=== PATIENT | female | born 1940 | race Caucasian/White ===

== ENCOUNTER 2016-10-13 15:05 | Emergency (ER) | payer MEDICARE ==
[2016-10-13] MEDS ORDERED: Protonix 40MG Tablet PO ONE (15:31)
[2016-10-13] MEDS ORDERED: Carafate 1 GM PO ONE ×4 (15:31→17:13)
[2016-10-13] MEDS ORDERED: Protonix 40MG Tablet ONE (15:37)
[2016-10-13 16:17] LABS: BASOPHIL % 0.2 % (0.0-0.4); Eosinophil % 0.7 % (0.00-5.0); Granulocytes % 69.8 % (36.0-66.0); Lymphocytes % 18.9 % (24.0-44.0); Mean Cell Volume 95.6 fl (78-100); Mean Corpuscular Hemoglobin 31.2 pg (26-32); Mean Platelet Volume 10.2 fl (6-9.5); Monocytes % 10.4 % (0.0-12.0); Platelet Count 181 K/mm3 (150-450); Red Blood Count 4.09 M/mm3 (4.1-5.4); Red Cell Distribution Width 13.5 % (11.5-14.0)
[2016-10-13 16:46] LABS: ALBUMIN 3.3 g/dL (3.4-5.0); ALKALINE PHOSPHATASE 69 U/L (46-116); ANION GAP 11.9 MEQ/L (5-15); BILIRUBIN,TOTAL 0.5 mg/dL (0.2-1.0); BLOOD UREA NITROGEN 15 mg/dL (9-20); CHLORIDE 107 mEq/L (98-107); Carbon Dioxide 26.6 mEq/L (21-32); Glucose 97 MG/DL (70-110); LIPASE 363 U/L (73-393); SGOT/AST 19 U/L (15-37); SGPT/ALT 18 U/L (12-78); SODIUM 142 mEq/L (136-145); Total Protein 6.6 gm/dL (6.4-8.2)
--- NOTE | 2016-10-13 17:00 | ERPHSYRPT ---
- History of Present Illness Time Seen by Provider: 10/13/16 15:09 Historian: patient, family Exam Limitations: no limitations Patient Subjective Stated Complaint: ABD PAIN SINCE 0100 Triage Nursing Assessment: SUDDEN ONSET OF MID ABD PAIN INTERMITTENT NONRADIATING ABD PAIN. PAIN GOES AND COMES. NORMAL BM TODAY. SLIGHT NAUSEA IN THE NIGHT BUT NONE PRESENT. WHILE AMBULATING INTO ROOM, PT HAD SUDDEN ONSET OF ABD PAIN WHICH LASTED APPROX 4-5 SECONDS Physician History: intermittant abdominal pain since 2 pm today; no nausea or vomiting; pain is sharp , epigastric ; goes straight thru to back; like an electrical shock; last a few seconds; 4/10 when occurs; no trauma; no prior hx; voiding and bms ok; no prior hx; no trauma Timing/Duration: today Activities at Onset: rest Quality: sharpness Abdominal Pain Onset Location: epigastric Pain Radiation: back Severity of Pain-Max: mild Severity of Pain-Current: none Modifying Factors: Improves With: nothing Associated Symptoms: denies symptoms Previous symptoms: no prior history Allergies/Adverse Reactions: levofloxacin [From Levaquin] Allergy (Verified 10/13/16 15:27) Home Medications: Alprazolam [Xanax 0.25 mg] 0.25 mg PO HSPRN PRN 03/29/16 [History] Hx Tetanus, Diphtheria Vaccination/Date Given: Yes Hx Influenza Vaccination/Date Given: Yes Hx Pneumococcal Vaccination/Date Given: Yes Immunizations Up to Date: Yes - Review of Systems Constitutional: No Symptoms Eyes: No Symptoms Ears, Nose, & Throat: No Symptoms Respiratory: No Cough, No Dyspnea, No Wheezing Cardiac: No Chest Pain, No Palpitations, No Syncope Abdominal/Gastrointestinal: Abdominal Pain, No Nausea, No Vomiting, No Diarrhea , No Constipation Genitourinary Symptoms: No Dysuria, No Frequency, No Hematuria, No Incontinence Skin: No Symptoms Neurological: No Symptoms Psychological: No Symptoms Endocrine: No Symptoms Hematologic/Lymphatic: No Symptoms Immunological/Allergic: No Symptoms - Past Medical History Pertinent Past Medical History: Yes Neurological History: No Pertinent History ENT History: No Pertinent History Cardiac History: High Cholesterol, Hypertension Respiratory History: Bronchitis Endocrine Medical History: No Pertinent History Musculoskeletal History: Other GI Medical History: No Pertinent History History: No Pertinent History Psycho-Social History: Anxiety Female Reproductive Disorders: No Pertinent History Other Medical History: stenosis of back - Past Surgical History Past Surgical History: Yes Neuro Surgical History: No Pertinent History Cardiac: No Pertinent History Respiratory: No Pertinent History Gastrointestinal: Cholecystectomy Genitourinary: No Pertinent History Musculoskeletal: No Pertinent History Female Surgical History: Hysterectomy Other Surgical History: Luis cataract surgery - Social History Smoking Status: Never smoker Exposure to second hand smoke: No Alcohol Use: None Drug Use: none Patient Lives Alone: No Significant Family History: no pertinent family hx - Female History Hx Now: No - Nursing Vital Signs Nursing Vital Signs: Initial Vital Signs Temperature 98.3 F Temperature Source Oral Pulse Rate 94 Respiratory Rate 18 Blood Pressure [Right Arm] 169/83 Pain Intensity 9 - Physical Exam General Appearance: mild distress, alert, obese Eye Exam: PERRL/EOMI, eyes nml inspection, No photophobia Ears, Nose, Throat Exam: normal ENT inspection, TMs normal, pharynx normal, moist mucous membranes Neck Exam: normal inspection, non-tender, supple, full range of motion, No meningismus, No JVD Respiratory Exam: normal breath sounds, lungs clear, airway intact, No chest tenderness, No respiratory distress Cardiovascular Exam: regular rate/rhythm, normal heart sounds, normal peripheral pulses, capillary refill <2 sec, No murmur Gastrointestinal/Abdomen Exam: soft, normal bowel sounds, tenderness (mild epigastric; not tneder if protedcts), No distention, No mass, No guarding, No pulsatile mass, No rebound, No organomegaly Pelvic Exam: deferred Rectal Exam: deferred Back Exam: normal inspection, normal range of motion, No CVA tenderness, No vertebral tenderness Extremity Exam: normal inspection, normal range of motion, No pelvis stable, No nya's sign Neurologic Exam: alert, oriented x 3, cooperative, rn psych II-XII nml as tested, normal mood/affect, nml cerebellar function, nml station & gait Skin Exam: normal color, warm, dry, No rash SpO2 Interpretation: normal SpO2: 96 Oxygen Delivery: Room Air Ordered Tests: Active Orders 24 hr Category Date Time Status EKG-ER Only STAT Care 10/13/16 15:31 Active Re-Check Vital Signs STAT Care 10/13/16 15:31 Completed AMYLASE Stat Lab 10/13/16 15:57 Completed CBC W DIFF Stat Lab 10/13/16 15:57 Completed CMP Stat Lab 10/13/16 15:57 Completed LIPASE Stat Lab 10/13/16 15:57 Completed Medication Summary Discontinued Medications Generic Name Dose Route Start Last Admin Trade Name Fatoumata PRN Reason Stop Dose Admin Pantoprazole Sodium 40 mg 10/13/16 15:31 10/13/16 15:37 Protonix 40mg Tablet PO 10/13/16 15:32 40 mg STAT ONE Administration Pantoprazole Sodium Confirm 10/13/16 15:37 Protonix 40mg Tablet Administered 10/13/16 15:38 Dose 40 mg .ROUTE .STK-MED ONE Sucralfate 1 g 10/13/16 15:31 10/13/16 15:37 Carafate 1 Gm PO 10/13/16 15:32 1 g STAT ONE Administration Sucralfate Confirm 10/13/16 15:37 Carafate 1 Gm Administered 10/13/16 15:38 Dose 1 g PO .STK-MED ONE Lab/Rad Data: Laboratory Result Diagrams 10/13/16 15:57 10/13/16 15:57 Laboratory Results 10/13/16 10/13/16 Range/Units 15:57 15:57 WBC 10.0 (4.0-10.5) K/mm3 RBC 4.09 L (4.1-5.4) M/mm3 Hgb 12.8 (12.0-16.0) gm/dl Hct 39.1 (35-47) % MCV 95.6 (78-100) fl MCH 31.2 (26-32) pg MCHC 32.7 (32-36) g/dl RDW 13.5 (11.5-14.0) % Plt Count 181 (150-450) K/mm3 MPV 10.2 H (6-9.5) fl Gran % 69.8 H (36.0-66.0) % Lymphocytes % 18.9 L (24.0-44.0) % Monocytes % 10.4 (0.0-12.0) % Eosinophils % 0.7 (0.00-5.0) % Basophils % 0.2 (0.0-0.4) % Basophils # 0.02 (0-0.4) Sodium 142 (136-145) mEq/L Potassium 4.0 (3.5-5.1) mEq/L Chloride 107 (98-107) mEq/L Carbon Dioxide 26.6 (21-32) mEq/L Anion Gap 11.9 (5-15) MEQ/L BUN 15 (9-20) mg/dL Creatinine 0.87 (0.55-1.30) mg/dl Estimated GFR > 60 ML/MIN Glucose 97 (70-110) MG/DL Calcium 8.9 (8.5-10.1) mg/dL Total Bilirubin 0.5 (0.2-1.0) mg/dL AST 19 (15-37) U/L ALT 18 (12-78) U/L Alkaline Phosphatase 69 (46-116) U/L Serum Total Protein 6.6 (6.4-8.2) gm/dL Albumin 3.3 L (3.4-5.0) g/dL Amylase 97 (25-115) U/L Lipase 363 (73-393) U/L reviewed - Progress Progress: improved (after meds), re-examined (after meds) Progress Note: 10/13/16 17:00 family at bedside; gave gi meds; rechecked and feeling better; abdomen soft non- tender; ;labs ok; treatment plan and instructions given Counseled pt/family regarding: lab results, diagnosis, need for follow-up - Departure Time of Disposition: 17:02 Departure Disposition: Home Clinical Impression: Abdominal pain Condition: Stable Critical Care Time: No Instructions: Abdominal Pain-Adult Additional Instructions: clear liquids 24 hours; bland diet 24 hours, Follow-up with family doctor as directed. Call for appointment. Return if any problems. If you smoke please stop. Call or follow up with your family doctor for assistance if you need it to stop. Please wear your seatbelt when driving. Have a nice day. Thank you for allowing us to participate in your care today. :o) Dr Dada Almaraz Prescriptions: Famotidine 20 mg [Pepcid 20 MG] 20 mg PO BID #30 tablet Sucralfate 1000 mg/10 ml [Carafate SUSPENSION 1000 MG/10 ML] 1 gm PO ACHS # 8 oz
[2016-10-13 17:24] VITALS: BP 122/70; PULSE 78; O2SAT 100
== END 2016-10-13 17:24 | disposition home or self-care (01) ==
LOC: ED 15:05
DX: R10.9 Unspecified abdominal pain (principal); R11.0 Nausea; R10.13 Epigastric pain
CPT/HCPCS: 36415; 80053; 82150; 83690; 85025; 93005; 99284; A9270-GY

== ENCOUNTER 2017-01-11 23:05 | Emergency (ER) | payer MEDICARE ==
--- NOTE | 2017-01-11 23:44 | ERPHSYRPT ---
- History of Present Illness Time Seen by Provider: 01/11/17 23:39 Historian: patient Patient Subjective Stated Complaint: Pt with chest pain earlier tonight after emotional upset with family. Pt took 5 81 mg ASA and maalox. Pt denies pain upon arrival to ER. Sts nausea PHYSICIAN SCRIBE. Describes pain as epigastric radiating up the center of the chest with nausea. Pt denies shortness of breath. Sts crying during episode. Triage Nursing Assessment: Pt alert, oriented, answers all questions appropriately. Skin p/w/d, resps non-labored. EKG at triage - sinus rhythm. Lung sounds CTA bilat. ABD soft, nontender, + bowel sounds x 4 quadrants. Physician History: Pt. states drank 3 beers tonight and noticed epigastric discomfort, dull, localized along with nausea, but no CP, vomiting, dizziness, weakness or SOB. Incident began around 10:30P and was talking to her daughter about her problems. States increase stressed from family problems. pt. took Maalox with some relief of her symptosm. Pt. states she has "leaky valve" and have seen rebar fabricator for this problems. States she also took Aspirin X 5 at home as well. Upon EMS arrival, pt.'s BP was 190/100. Timing/Duration: hour(s) (1) Activities at Onset: emotional stress Quality: aching Abdominal Pain Onset Location: epigastric Pain Radiation: no radiation Severity of Pain-Max: mild Severity of Pain-Current: mild Associated Symptoms: diarrhea, No chest pain, No diaphoresis, No fatigue, No headache, No vomiting Previous symptoms: same symptoms as today Allergies/Adverse Reactions: levofloxacin [From Levaquin] Allergy (Verified 01/11/17 23:17) Home Medications: Alprazolam [Xanax 0.25 mg] 0.25 mg PO HSPRN PRN 03/29/16 [History] Ropinirole HCl [Requip] 0 mg PO 01/11/17 [History] Hx Tetanus, Diphtheria Vaccination/Date Given: Yes Hx Influenza Vaccination/Date Given: Yes Hx Pneumococcal Vaccination/Date Given: Yes Immunizations Up to Date: Yes - Review of Systems Constitutional: No Fever, No Chills Eyes: No Symptoms Ears, Nose, & Throat: No Symptoms Respiratory: No Cough, No Dyspnea Cardiac: No Chest Pain, No Edema, No Syncope Abdominal/Gastrointestinal: Abdominal Pain, Nausea, Diarrhea, No Vomiting Genitourinary Symptoms: No Dysuria Musculoskeletal: No Back Pain, No Neck Pain Skin: No Rash Neurological: No Dizziness, No Focal Weakness, No Sensory Changes Psychological: No Symptoms Endocrine: No Symptoms All Other Systems: Reviewed and Negative - Past Medical History Pertinent Past Medical History: Yes Neurological History: No Pertinent History ENT History: No Pertinent History Cardiac History: High Cholesterol, Hypertension Respiratory History: Bronchitis Endocrine Medical History: No Pertinent History Musculoskeletal History: Other GI Medical History: No Pertinent History History: No Pertinent History Psycho-Social History: Anxiety Female Reproductive Disorders: No Pertinent History Other Medical History: stenosis of back - Past Surgical History Past Surgical History: Yes Neuro Surgical History: No Pertinent History Cardiac: No Pertinent History Respiratory: No Pertinent History Gastrointestinal: Cholecystectomy Genitourinary: No Pertinent History Musculoskeletal: No Pertinent History Female Surgical History: Hysterectomy Other Surgical History: Luis cataract surgery - Social History Smoking Status: Never smoker Exposure to second hand smoke: No Alcohol Use: None Drug Use: none Patient Lives Alone: No Significant Family History: no pertinent family hx - Female History Hx Now: No - Nursing Vital Signs Nursing Vital Signs: Initial Vital Signs Temperature 98.5 F 01/11/17 23:10 Pulse Rate 71 01/11/17 23:10 Respiratory Rate 20 01/11/17 23:10 Blood Pressure 194/86 01/11/17 23:10 O2 Sat by Pulse Oximetry 99 01/11/17 23:10 Pain Scale Pain Intensity 8 - Physical Exam General Appearance: no apparent distress, alert Eye Exam: PERRL/EOMI, eyes nml inspection Ears, Nose, Throat Exam: normal ENT inspection, pharynx normal, moist mucous membranes Neck Exam: normal inspection, non-tender, supple, full range of motion Respiratory Exam: normal breath sounds, lungs clear, No respiratory distress Cardiovascular Exam: regular rate/rhythm, normal heart sounds Gastrointestinal/Abdomen Exam: soft, tenderness (mild to epigastric area), No distention, No mass, No pulsatile mass, No rebound Back Exam: normal inspection, normal range of motion, No CVA tenderness, No vertebral tenderness Extremity Exam: normal inspection, normal range of motion, pelvis stable Neurologic Exam: alert, oriented x 3, cooperative, normal mood/affect, nml cerebellar function, sensation nml, No motor deficits Skin Exam: normal color, warm, dry SpO2: 99 Oxygen Delivery: Room Air - Course Nursing assessment & vital signs reviewed: Yes EKG Interpreted by Me: RATE (60), Sinus Rhythm, NORMAL AXIS, NORMAL QRS, NORMAL ST-T - Radiology Exams Abdomen X-ray Interpretation: Interpreted by me, No Infiltrates, Other (No obstruction or free air) Ordered Tests: Active Orders 24 hr Category Date Time Status EKG-ER Only STAT Care 01/11/17 23:48 Active IV Insertion STAT Care 01/11/17 23:48 Active OBSTR/ACUTE ABDOMEN SERIES Stat Exams 01/11/17 23:49 Taken AMYLASE Stat Lab 01/11/17 00:25 Completed CBC W DIFF Stat Lab 01/11/17 00:25 Completed CMP Stat Lab 01/11/17 00:25 Completed LIPASE Stat Lab 01/11/17 00:25 Completed TROPONIN Q3H Lab 01/11/17 00:25 Completed TROPONIN Q3H Lab 01/12/17 02:48 Ordered TROPONIN Q3H Lab 01/12/17 05:48 Ordered TROPONIN Q3H Lab 01/12/17 08:48 Ordered TROPONIN Q3H Lab 01/12/17 11:48 Ordered Medication Summary Discontinued Medications Generic Name Dose Route Start Last Admin Trade Name Freq PRN Reason Stop Dose Admin Al Hydrox/Mg Hydrox/Simethicone Confirm 01/12/17 00:39 Maalox Es 30 Ml Unit Dose Administered 01/12/17 00:40 Dose 30 ml .ROUTE .STK-MED ONE Belladonna Alkaloids/Phenobarbital 60 ml 01/12/17 00:35 01/12/17 00:43 Gi Cocktail 60ml (Belladonn/Phenobarb/Lidoc* PO 01/12/17 00:36 60 ml STAT ONE Administration Belladonna Alkaloids/Phenobarbital Confirm 01/12/17 00:39 Donnatol Liquid Administered 01/12/17 00:40 Dose 64.8 mg .ROUTE .STK-MED ONE Lidocaine HCl Confirm 01/12/17 00:38 Xylocaine Hcl Viscous * Administered 01/12/17 00:39 Dose 20 ml .ROUTE .STK-MED ONE Morphine Sulfate 2 mg 01/11/17 23:48 01/12/17 00:04 Morphine Sulfate 2 Mg Inj IV 01/11/17 23:49 2 mg STAT ONE Administration Morphine Sulfate Confirm 01/11/17 23:53 Morphine Sulfate 2 Mg Inj Administered 01/11/17 23:54 Dose 2 mg .ROUTE .STK-MED ONE Ondansetron HCl 4 mg 01/11/17 23:48 01/12/17 00:04 Zofran 4 Mg/2 Ml Vial IV 01/11/17 23:49 4 mg STAT ONE Administration Ondansetron HCl Confirm 01/11/17 23:53 Zofran 4 Mg/2 Ml Vial Administered 01/11/17 23:54 Dose 4 mg .ROUTE .STK-MED ONE Pantoprazole Sodium 40 mg 01/11/17 23:48 01/12/17 00:04 Protonix 40mg Tablet PO 01/11/17 23:49 40 mg STAT ONE Administration Pantoprazole Sodium Confirm 01/11/17 23:53 Protonix 40mg Tablet Administered 01/11/17 23:54 Dose 40 mg .ROUTE .STK-MED ONE Lab/Rad Data: Laboratory Result Diagrams 01/11/17 00:25 01/11/17 00:25 Laboratory Results 01/11/17 01/11/17 01/11/17 Range/Units 00:25 00:25 00:25 WBC 7.7 (4.0-10.5) K/mm3 RBC 4.45 (4.1-5.4) M/mm3 Hgb 13.4 (12.0-16.0) gm/dl Hct 41.1 (35-47) % MCV 92.4 (78-100) fl MCH 30.1 (26-32) pg MCHC 32.6 (32-36) g/dl RDW 13.7 (11.5-14.0) % Plt Count 223 (150-450) K/mm3 MPV 10.0 H (6-9.5) fl Gran % 55.6 (36.0-66.0) % Lymphocytes % 33.3 (24.0-44.0) % Monocytes % 9.4 (0.0-12.0) % Eosinophils % 1.2 (0.00-5.0) % Basophils % 0.5 (0.0-0.4) % Basophils # 0.04 (0-0.4) Sodium 139 (136-145) mEq/L Potassium 3.7 (3.5-5.1) mEq/L Chloride 103 (98-107) mEq/L Carbon Dioxide 26.5 (21-32) mEq/L Anion Gap 13.3 (5-15) MEQ/L BUN 17 (9-20) mg/dL Creatinine 0.88 (0.55-1.30) mg/dl Estimated GFR > 60 ML/MIN Glucose 104 (70-110) MG/DL Calcium 8.6 (8.5-10.1) mg/dL Total Bilirubin 0.40 (0.2-1.0) mg/dL AST 45 H (15-37) U/L ALT 29 (12-78) U/L Alkaline Phosphatase 81 (46-116) U/L Troponin I < 0.017 (0.000-0.056) ng/ml Serum Total Protein 7.4 (6.4-8.2) gm/dL Albumin 3.8 (3.4-5.0) g/dL Amylase 77 (25-115) U/L Lipase 276 (73-393) U/L - Progress Progress: improved Progress Note: 01/12/17 01:27 Pt. given Protonix/Zofran/GI Cocktail with good relief of her symptoms. Pt. sleeping very comfortably, NAD Counseled pt/family regarding: lab results, diagnosis, rad results - Departure Time of Disposition: 01:28 Departure Disposition: Home Clinical Impression: Abdominal pain Qualifiers: Abdominal location: epigastric Qualified Code(s): R10.13 - Epigastric pain Condition: Stable Critical Care Time: No Referrals: KERRIE LOVING [Primary Care Provider] - Instructions: Abdominal Pain-Adult Additional Instructions: RX: Pepcid/Zofran Return for worse abdominal pain, vomiting, chest pain, dizziness, short of breath, weakness, or any problems Prescriptions: Ondansetron [Zofran Odt] 4 mg PO Q6H PRN PRN #10 tab.rapdis PRN Reason: Nausea/Vomiting Famotidine [Pepcid] 20 mg PO DAILY #30 tablet
[2017-01-11] MEDS ORDERED: Protonix 40MG Tablet PO ONE (23:48)
[2017-01-11] MEDS ORDERED: Zofran 4 MG/2 ML VIAL IV ONE (23:48)
[2017-01-11] MEDS ORDERED: MORPHINE SULFATE 2 MG INJ IV ONE (23:48)
[2017-01-11] MEDS ORDERED: Zofran 4 MG/2 ML VIAL ONE (23:53)
[2017-01-11] MEDS ORDERED: MORPHINE SULFATE 2 MG INJ ONE (23:53)
[2017-01-11] MEDS ORDERED: Protonix 40MG Tablet ONE (23:53)
[2017-01-12] MEDS ORDERED: GI COCKTAIL 60ML (Belladonn/Phenobarb/Lidoc PO ONE (00:35)
[2017-01-12] MEDS ORDERED: XYLOCAINE HCl Viscous ONE (00:38)
[2017-01-12] MEDS ORDERED: MAALOX ES 30 ML UNIT DOSE ONE (00:39)
[2017-01-12] MEDS ORDERED: Donnatol Liquid ONE (00:39)
[2017-01-12 00:42] LABS: BASOPHIL % 0.5 % (0.0-0.4); Eosinophil % 1.2 % (0.00-5.0); Granulocytes % 55.6 % (36.0-66.0); Lymphocytes % 33.3 % (24.0-44.0); Mean Cell Volume 92.4 fl (78-100); Mean Corpuscular Hemoglobin 30.1 pg (26-32); Monocytes % 9.4 % (0.0-12.0); Platelet Count 223 K/mm3 (150-450); Red Blood Count 4.45 M/mm3 (4.1-5.4); Red Cell Distribution Width 13.7 % (11.5-14.0); White Blood Count 7.7 K/mm3 (4.0-10.5)
[2017-01-12 01:02] LABS: ALBUMIN 3.8 g/dL (3.4-5.0); ALKALINE PHOSPHATASE 81 U/L (46-116); ANION GAP 13.3 MEQ/L (5-15); BLOOD UREA NITROGEN 17 mg/dL (9-20); CHLORIDE 103 mEq/L (98-107); Carbon Dioxide 26.5 mEq/L (21-32); Glucose 104 MG/DL (70-110); LIPASE 276 U/L (73-393); Potassium 3.7 mEq/L (3.5-5.1); SGOT/AST 45 U/L (15-37); SGPT/ALT 29 U/L (12-78); SODIUM 139 mEq/L (136-145); Total Protein 7.4 gm/dL (6.4-8.2)
[2017-01-12 02:14] VITALS: BP 176/82; PULSE 86; O2SAT 98
--- NOTE | 2017-01-12 09:24 | XRAY ---
Indication: Chest and abdomen pain. Comparison: Chest exam May 07, 2016. 2 views of the abdomen nonacute and nonobstructed with scattered mid abdominal surgical clips. Solid organs unremarkable. Osseous structures intact with minimal degenerative changes. Single PA chest again demonstrates normal heart and lungs. Bony thorax intact. Impression: Negative abdomen. Stable nonacute 1 view chest.
== END 2017-01-12 02:15 | disposition home or self-care (01) ==
LOC: ED 23:05
DX: R10.13 Epigastric pain (principal); R11.0 Nausea; Z73.3 Stress, not elsewhere classified; Z63.8 Other specified problems related to primary support group; I10 Essential (primary) hypertension; E78.00 Pure hypercholesterolemia, unspecified
CPT/HCPCS: 36000; 36415; 74022; 80053; 82150; 83690; 84484; 85025; 93005; 96374; 96375; 99284; 99285; J2270; J2405; A9270-GY

== ENCOUNTER 2018-08-01 19:35 | Emergency (ER) | payer MEDICARE ==
[2018-08-01] MEDS ORDERED: Sodium Chloride 0.9% 1000 ML 1,000 ML IV STA (20:25)
[2018-08-01] MEDS ORDERED: MOTRIN 600 MG PO STA (20:25)
[2018-08-01] MEDS ORDERED: Zofran 4 MG/2 ML VIAL IV STA (20:25)
--- NOTE | 2018-08-01 20:25 | ERPHSYRPT ---
- History of Present Illness Time Seen by Provider: 08/01/18 20:15 Source: patient, family Exam Limitations: no limitations Patient Subjective Stated Complaint: pt c/o fever x 3 days, cough that has worsened "this week, but i have asthmatic bronchitis so i'm always coughing". c/ o intermittent diarrhea,. fatigue and body aches. denies changes in urination. Triage Nursing Assessment: pink/hot/dry, resp easy, a&ox4, wheeled to room but able to transfer to bed per self without difficulty. Physician History: 78 y/o white female presents with fever, cough, muscle aches and diarrhea for 2 to 3 days. has a h/o asthmatic bronchitis. sx not improved. denies cp, denies abd pain. pt denies earaches, denies sore throat and denies neck pain. 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 Associated Symptoms: cough, muscle aches, No diaphoresis, No shortness of breath , No sore throat, No stiff neck International travel in last 2 weeks: No Allergies/Adverse Reactions: levofloxacin [From [employer]] Allergy (Verified 01/11/17 23:17) Home Medications: ALPRAZolam [Xanax 0.25 mg] 0.25 mg PO HSPRN PRN 03/29/16 [History] Ropinirole HCl [Requip] 0 mg PO 01/11/17 [History] Losartan/Hydrochlorothiazide [Losartan-Hctz 50-12.5 mg Tab] 1 tab PO DAILY 08/01 [History] Hx Tetanus, Diphtheria Vaccination/Date Given: Yes Hx Influenza Vaccination/Date Given: Yes Hx Pneumococcal Vaccination/Date Given: Yes Immunizations Up to Date: Yes - Review of Systems Constitutional: Fever, Weakness Eyes: No Symptoms Ears, Nose, & Throat: No Symptoms Respiratory: Cough, No Dyspnea, No Stridor, No Wheezing Cardiac: No Symptoms Abdominal/Gastrointestinal: No Symptoms, No Abdominal Pain, No Nausea, No Vomiting, No Diarrhea Genitourinary Symptoms: No Symptoms, No Dysuria, No Frequency, No Hematuria Musculoskeletal: No Symptoms, Back Pain Skin: No Symptoms Neurological: No Symptoms Psychological: No Symptoms Endocrine: No Symptoms Hematologic/Lymphatic: No Symptoms Immunological/Allergic: No Symptoms All Other Systems: Reviewed and Negative - Past Medical History Pertinent Past Medical History: Yes Neurological History: No Pertinent History ENT History: No Pertinent History Cardiac History: High Cholesterol, Hypertension Respiratory History: Bronchitis Endocrine Medical History: No Pertinent History Musculoskeletal History: Other GI Medical History: No Pertinent History History: No Pertinent History Psycho-Social History: Anxiety Female Reproductive Disorders: No Pertinent History Other Medical History: stenosis of back - Past Surgical History Past Surgical History: Yes Neuro Surgical History: No Pertinent History Cardiac: No Pertinent History Respiratory: No Pertinent History Gastrointestinal: Cholecystectomy Genitourinary: No Pertinent History Musculoskeletal: No Pertinent History Female Surgical History: Hysterectomy Other Surgical History: Luis cataract surgery - Social History Smoking Status: Never smoker Exposure to second hand smoke: No Alcohol Use: None Drug Use: none Patient Lives Alone: No Significant Family History: no pertinent family hx - Female History Hx Now: No - Nursing Vital Signs Nursing Vital Signs: Initial Vital Signs Temperature 103.2 F 08/01/18 20:14 Pulse Rate 107 H 08/01/18 20:14 Respiratory Rate 18 08/01/18 20:14 Blood Pressure 149/90 08/01/18 20:14 O2 Sat by Pulse Oximetry 94 L 08/01/18 20:14 - Physical Exam General Appearance: mild distress, alert, anxiety Eye Exam: PERRL/EOMI ENT Exam: normal ENT inspection, TMs normal, pharynx normal Neck Exam: normal inspection, non-tender, supple, full range of motion Respiratory Exam: normal breath sounds, chest non-tender, lungs clear, no respiratory distress, no accessory muscle use Cardiovascular/Chest Exam: tachycardia Gastrointestinal/Abdominal Exam: soft, non tender, no distention, no mass, no guarding, no organomegaly, normal bowel sounds Pelvic Exam: not done Rectal Exam: not done Extremity Exam: non-tender, normal range of motion, normal inspection Neurologic Exam: alert, oriented x 3, 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, 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 Skin Exam: normal color, warm, dry Lymphatic: No adenopathy SpO2 Interpretation: borderline oxygenation SpO2: 94 O2 Delivery: Room Air Ordered Tests: Active Orders 24 hr Category Date Time Status IV Insertion STAT Care 08/01/18 20:25 Active CHEST 1 VIEW (PORTABLE) Stat Exams 08/01/18 20:25 Taken BLOOD CULTURE Stat Lab 08/01/18 21:00 Received CBC W DIFF Stat Lab 08/01/18 20:30 Completed CMP Stat Lab 08/01/18 20:30 Completed Lactic Acid Stat Lab 08/01/18 21:00 Completed [place] Screen Stat Lab 08/01/18 20:30 Completed UA W/RFX UR CULTURE Stat Lab 08/01/18 21:15 Completed Medication Summary Discontinued Medications Generic Name Dose Route Start Last Admin Trade Name Fatoumata PRN Reason Stop Dose Admin Hydrocodone Bitart/Acetaminophen 10 ml 08/01/18 20:26 08/01/18 20:57 Hydrocodone-Acetamin 2.5-108/5 Ml Solution PO 08/01/18 20:27 10 ml STAT STA Administration Hydrocodone Bitart/Acetaminophen Confirm 08/01/18 20:40 Hydrocodone-Acetamin 2.5-108/5 Ml Solution Administered 08/01/18 20:41 Dose 10 ml .ROUTE .STK-MED ONE Sodium Chloride 1,000 mls @ 999 mls/hr 08/01/18 20:25 08/01/18 20:57 Sodium Chloride 0.9% 1000 Ml IV 08/01/18 21:25 999 mls/hr .Q1H1M STA Administration Sodium Chloride Confirm 08/01/18 20:40 Sodium Chloride 0.9% 1000 Ml Administered 08/01/18 20:41 Dose 1,000 mls @ ud .ROUTE .STK-MED ONE Ceftriaxone Sodium/Dextrose 1 g in 50 mls @ 100 mls/hr 08/01/18 21:51 21:59 Rocephin 1 Gm-D5w 50 Ml Bag IV 08/01/18 22:20 100 mls/hr STAT STA Administration Ceftriaxone Sodium/Dextrose Confirm 08/01/18 21:55 Rocephin 1 Gm-D5w 50 Ml Bag Administered 08/01/18 21:56 Dose 1 g in 50 mls @ ud IV .STK-MED ONE Ibuprofen 600 mg 08/01/18 20:25 08/01/18 20:57 Motrin 600 Mg PO 08/01/18 20:26 600 mg STAT STA Administration Ibuprofen Confirm 08/01/18 20:40 Motrin 600 Mg Administered 08/01/18 20:41 Dose 600 mg .ROUTE .STK-MED ONE Ondansetron HCl 4 mg 08/01/18 20:25 08/01/18 20:57 Zofran 4 Mg/2 Ml Vial IV 08/01/18 20:26 4 mg STAT STA Administration Ondansetron HCl Confirm 08/01/18 20:40 Zofran 4 Mg/2 Ml Vial Administered 08/01/18 20:41 Dose 4 mg .ROUTE .STK-MED ONE Oseltamivir Phosphate 75 mg 08/01/18 22:02 08/01/18 22:09 Tamiflu 75mg Capsule PO 08/01/18 22:03 75 mg STAT ONE Administration Oseltamivir Phosphate Confirm 08/01/18 22:09 Tamiflu 75mg Capsule Administered 08/01/18 22:10 Dose 75 mg PO .STK-MED ONE Potassium Chloride 10 meq 08/01/18 21:53 08/01/18 21:59 Klor Con 10 Meq PO 08/01/18 21:54 10 meq STAT ONE Administration Potassium Chloride Confirm 08/01/18 21:55 Klor Con 10 Meq Administered 08/01/18 21:56 Dose 10 meq PO .STK-MED ONE Lab/Rad Data: Laboratory Result Diagrams 08/01/18 20:30 08/01/18 20:30 Laboratory Results 08/01/18 08/01/18 08/01/18 Range/Units 21:15 21:00 20:30 WBC (4.0-10.5) K/mm3 RBC (4.1-5.4) M/mm3 Hgb (12.0-16.0) gm/dl Hct (35-47) % MCV (78-100) fl MCH (26-32) pg MCHC (32-36) g/dl RDW (11.5-14.0) % Plt Count (150-450) K/mm3 MPV (6-9.5) fl Gran % (36.0-66.0) % Eos # (Auto) (0-0.5) Absolute Lymphs (auto) (1.0-4.6) Absolute Monos (auto) (0.0-1.3) Lymphocytes % (24.0-44.0) % Monocytes % (0.0-12.0) % Eosinophils % (0.00-5.0) % Basophils % (0.0-0.4) % Absolute Granulocytes (1.4-6.9) Basophils # (0-0.4) Sodium (137-145) mmol/L Potassium (3.5-5.1) mmol/L Chloride (98-107) mmol/L Carbon Dioxide (22-30) mmol/L Anion Gap (5-15) MEQ/L BUN (7-17) mg/dL Creatinine (0.52-1.04) mg/dL Estimated GFR ML/MIN Glucose (74-106) mg/dL Lactic Acid 1.0 (0.4-2.0) Calcium (8.4-10.2) mg/dL Total Bilirubin (0.2-1.3) mg/dL AST (14-36) U/L ALT (0-35) U/L Alkaline Phosphatase (38-126) U/L Serum Total Protein (6.3-8.2) g/dL Albumin (3.5-5.0) g/dL Urine Color YELLOW (YELLOW) Urine Appearance SLIGHTLY CLOUDY (CLEAR) Urine pH 5.0 (5-6) Ur Specific [place] 1.015 (1.005-1.025) Urine Protein NEGATIVE (Negative) Urine Ketones SMALL (NEGATIVE) Urine Blood MODERATE (0-5) Gustavo/ul Urine Nitrite NEGATIVE (NEGATIVE) Urine Bilirubin NEGATIVE (NEGATIVE) Urine Urobilinogen NEGATIVE (0-1) mg/dL Ur Leukocyte Esterase LARGE (NEGATIVE) Urine WBC (Auto) 6-10 (0-5) /HPF Urine RBC (Auto) 11-15 (0-2) /HPF U Hyaline Cast (Auto) 0-2 (0-2) /LPF U Epithel Cells (Auto) RARE (FEW) /HPF Urine Bacteria (Auto) RARE (NEGATIVE) /HPF Urine Mucus (Auto) SLIGHT (NEGATIVE) /HPF Urine Culture Reflexed NO (NO) Urine Glucose NEGATIVE (NEGATIVE) mg/dL Monoscreen (Negative) Influenza Type A Ag POSITIVE (NEGATIVE) Influenza Type B Ag NEGATIVE (NEGATIVE) RSV (PCR) NEGATIVE (Negative) Group A Strep Antibody NEGATIVE (NEGATIVE) 08/01/18 08/01/18 08/01/18 Range/Units 20:30 20:30 20:30 WBC 7.9 (4.0-10.5) K/mm3 RBC 3.91 L (4.1-5.4) M/mm3 Hgb 12.0 (12.0-16.0) gm/dl Hct 36.3 (35-47) % MCV 92.8 (78-100) fl MCH 30.6 (26-32) pg MCHC 33.1 (32-36) g/dl RDW 13.5 (11.5-14.0) % Plt Count 193 (150-450) K/mm3 MPV 10.5 H (6-9.5) fl Gran % 69.6 H (36.0-66.0) % Eos # (Auto) 0 (0-0.5) Absolute Lymphs (auto) 1.48 (1.0-4.6) Absolute Monos (auto) 0.89 (0.0-1.3) Lymphocytes % 18.8 L (24.0-44.0) % Monocytes % 11.3 (0.0-12.0) % Eosinophils % 0.0 (0.00-5.0) % Basophils % 0.3 (0.0-0.4) % Absolute Granulocytes 5.47 (1.4-6.9) Basophils # 0.02 (0-0.4) Sodium 134 L (137-145) mmol/L Potassium 3.0 L (3.5-5.1) mmol/L Chloride 96 L (98-107) mmol/L Carbon Dioxide 27 (22-30) mmol/L Anion Gap 14.1 (5-15) MEQ/L BUN 11 (7-17) mg/dL Creatinine 0.81 (0.52-1.04) mg/dL Estimated GFR > 60.0 ML/MIN Glucose 89 (74-106) mg/dL Lactic Acid (0.4-2.0) Calcium 8.5 (8.4-10.2) mg/dL Total Bilirubin 0.70 (0.2-1.3) mg/dL AST 37 H (14-36) U/L ALT 22 (0-35) U/L Alkaline Phosphatase 77 (38-126) U/L Serum Total Protein 6.8 (6.3-8.2) g/dL Albumin 3.6 (3.5-5.0) g/dL Urine Color (YELLOW) Urine Appearance (CLEAR) Urine pH (5-6) Ur Specific [place] (1.005-1.025) Urine Protein (Negative) Urine Ketones (NEGATIVE) Urine Blood (0-5) Gustavo/ul Urine Nitrite (NEGATIVE) Urine Bilirubin (NEGATIVE) Urine Urobilinogen (0-1) mg/dL Ur Leukocyte Esterase (NEGATIVE) Urine WBC (Auto) (0-5) /HPF Urine RBC (Auto) (0-2) /HPF U Hyaline Cast (Auto) (0-2) /LPF U Epithel Cells (Auto) (FEW) /HPF Urine Bacteria (Auto) (NEGATIVE) /HPF Urine Mucus (Auto) (NEGATIVE) /HPF Urine Culture Reflexed (NO) Urine Glucose (NEGATIVE) mg/dL Monoscreen NEGATIVE (Negative) Influenza Type A Ag (NEGATIVE) Influenza Type B Ag (NEGATIVE) RSV (PCR) (Negative) Group A Strep Antibody (NEGATIVE) - Progress Progress: improved, re-examined Progress Note: 08/01/18 22:22 cxr-no acute process Counseled pt/family regarding: lab results, diagnosis, need for follow-up, rad results - Departure Time of Disposition: 22:22 Departure Disposition: Home Clinical Impression: Influenza A H1N1 infection, UTI (urinary tract infection) Condition: Stable Critical Care Time: No Referrals: SMITH HAYES MD [Primary Care Provider] - Additional Instructions: drink plenty of fluids. follow up with primary doctor for further management. add ibuprofen for pain and fever Prescriptions: Cefdinir 300 mg PO BID 7 Days #14 capsule Hydrocodone Bit/Acetaminophen [Hydrocodone-Acetaminophen Soln] 10 ml PO Q6H PRN #120 ml PRN Reason: Cough
[2018-08-01] MEDS ORDERED: HYDROCODONE-ACETAMIN 2.5-108/5 ML SOLUTION PO STA (20:26)
[2018-08-01] MEDS ORDERED: MOTRIN 600 MG ONE (20:40)
[2018-08-01] MEDS ORDERED: Zofran 4 MG/2 ML VIAL ONE (20:40)
[2018-08-01] MEDS ORDERED: Sodium Chloride 0.9% 1000 ML 1,000 ML ONE (20:40)
[2018-08-01] MEDS ORDERED: HYDROCODONE-ACETAMIN 2.5-108/5 ML SOLUTION ONE (20:40)
[2018-08-01 21:24] LABS: BASOPHIL % 0.3 % (0.0-0.4); Basophil (Absolute #) 0.02 (0-0.4); Eosinophil (Absolute #) 0 (0-0.5); Granulocyte Absolute (ANC) 5.47 (1.4-6.9); Granulocytes % 69.6 % (36.0-66.0); Hematocrit 36.3 % (35-47); Lymphocyte (Absolute #) 1.48 (1.0-4.6); Lymphocytes % 18.8 % (24.0-44.0); Mean Cell Volume 92.8 fl (78-100); Mean Corpuscular Hgb Concent. 33.1 g/dl (32-36); Mean Platelet Volume 10.5 fl (6-9.5); Monocyte (Absolute #) 0.89 (0.0-1.3); Monocytes % 11.3 % (0.0-12.0); Platelet Count 193 K/mm3 (150-450); Red Blood Count 3.91 M/mm3 (4.1-5.4); Red Cell Distribution Width 13.5 % (11.5-14.0); White Blood Count 7.9 K/mm3 (4.0-10.5)
[2018-08-01 21:26] LABS: Mean Corpuscular Hemoglobin 30.6 pg (26-32)
[2018-08-01 21:32] LABS: Appearance SLIGHTLY CLOUDY (CLEAR); Bacteria RARE /HPF (NEGATIVE); Bilirubin NEGATIVE (NEGATIVE); Blood MODERATE Ery/ul (0-5); Epithelial Cells RARE /HPF (FEW); Glucose NEGATIVE (NEGATIVE); Hyaline Casts 0-2 /LPF (0-2); Ketones SMALL (NEGATIVE); Leukocyte Esterase LARGE (NEGATIVE); Mucus SLIGHT /HPF (NEGATIVE); Nitrite NEGATIVE (NEGATIVE); Protein,Urine Dip NEGATIVE (Negative); Specific Gravity 1.015 (1.005-1.025); Urobilinogen NEGATIVE mg/dL (0-1)
[2018-08-01 21:36] LABS: ALBUMIN 3.6 g/dL (3.5-5.0); ALKALINE PHOSPHATASE 77 U/L (38-126); ANION GAP 14.1 MEQ/L (5-15); BLOOD UREA NITROGEN 11 mg/dL (7-17); CHLORIDE 96 mmol/L (98-107); Calcium 8.5 mg/dL (8.4-10.2); Carbon Dioxide 27 mmol/L (22-30); Creatinine 1 0.81 mg/dL (0.52-1.04); Glucose 89 mg/dL (74-106); SGOT/AST 37 U/L (14-36); SGPT/ALT 22 U/L (0-35); SODIUM 134 mmol/L (137-145); Total Protein 6.8 g/dL (6.3-8.2)
[2018-08-01] MEDS ORDERED: ROCEPHIN 1 Gm-D5w 50 ml Bag** 1 G/50 ML IVPB IV STA (21:51)
[2018-08-01] MEDS ORDERED: Klor Con 10 MEQ PO ONE ×2 (21:53→21:55)
[2018-08-01] MEDS ORDERED: ROCEPHIN 1 Gm-D5w 50 ml Bag** 1 G/50 ML IVPB IV ONE (21:55)
[2018-08-01 22:00] LABS: Group A Strep NEGATIVE (NEGATIVE); INFLUENZA B NEGATIVE (NEGATIVE); RESPIRATORY SYNCTIAL VIRUS NEGATIVE (Negative)
[2018-08-01 22:01] LABS: INFLUENZA A POSITIVE (NEGATIVE)
[2018-08-01] MEDS ORDERED: Tamiflu 75MG Capsule PO ONE ×2 (22:02→22:09)
[2018-08-01 22:36] VITALS: BP 129/63; PULSE 76; O2SAT 92
--- NOTE | 2018-08-02 09:15 | XRAY ---
Indication: Fever and cough. Comparison: January 11, 2017. Portable chest again demonstrates normal heart and lungs. Bony thorax intact again with mild degenerative changes. No new/acute findings.
== END 2018-08-01 22:47 | disposition home or self-care (01) ==
LOC: ED 19:35
DX: J10.1 Influenza due to other identified influenza virus with other respiratory manifestations (principal); N39.0 Urinary tract infection, site not specified
CPT/HCPCS: 36415; 71045; 80053; 81001; 83605; 85025; 86308; 87040; 87631; 87651; 96360; 96365; 96374; 96375; 99284; J0696; J2405; A9270-GY

== ENCOUNTER 2018-11-06 13:48 | Emergency (ER) | payer MEDICARE ==
[2018-11-06] MEDS ORDERED: Sodium Chloride 0.9% 1000 ML 1,000 ML IV STA (14:13)
[2018-11-06] MEDS ORDERED: Zofran 4 MG/2 ML VIAL IV ONE (14:20)
[2018-11-06] MEDS ORDERED: Hydromorphone 1 mg/ml Ampule IV ONE (14:20)
[2018-11-06] MEDS ORDERED: Sodium Chloride 0.9% 1000 ML 1,000 ML ONE (14:23)
[2018-11-06] MEDS ORDERED: Zofran 4 MG/2 ML VIAL ONE (14:29)
[2018-11-06] MEDS ORDERED: Hydromorphone 1 mg/ml Ampule ONE (14:31)
[2018-11-06 14:33] LABS: BASOPHIL % 0.6 % (0.0-0.4); Basophil (Absolute #) 0.03 (0-0.4); Eosinophil % 2.7 % (0.00-5.0); Eosinophil (Absolute #) 0.13 (0-0.5); Granulocyte Absolute (ANC) 2.05 (1.4-6.9); Granulocytes % 42.1 % (36.0-66.0); Hematocrit 38.8 % (35-47); Hemoglobin 13.1 gm/dl (12.0-16.0); Lymphocyte (Absolute #) 2.03 (1.0-4.6); Lymphocytes % 41.8 % (24.0-44.0); Mean Cell Volume 92.8 fl (78-100); Mean Corpuscular Hemoglobin 31.3 pg (26-32); Mean Corpuscular Hgb Concent. 33.8 g/dl (32-36); Mean Platelet Volume 10.6 fl (6-9.5); Monocyte (Absolute #) 0.62 (0.0-1.3); Monocytes % 12.8 % (0.0-12.0); Platelet Count 229 K/mm3 (150-450); Red Blood Count 4.18 M/mm3 (4.1-5.4); Red Cell Distribution Width 13.7 % (11.5-14.0); White Blood Count 4.9 K/mm3 (4.0-10.5)
[2018-11-06 14:45] LABS: ALBUMIN 3.9 g/dL (3.5-5.0); ALKALINE PHOSPHATASE 78 U/L (38-126); AMYLASE 61 U/L (30-110); ANION GAP 12.4 MEQ/L (5-15); BLOOD UREA NITROGEN 16 mg/dL (7-17); CHLORIDE 99 mmol/L (98-107); Calcium 9.5 mg/dL (8.4-10.2); Carbon Dioxide 28 mmol/L (22-30); Creatinine 1 0.77 mg/dL (0.52-1.04); Glucose 93 mg/dL (74-106); LIPASE 58 U/L (23-300); Potassium 3.5 mmol/L (3.5-5.1); SGOT/AST 32 U/L (14-36); SGPT/ALT 20 U/L (0-35); SODIUM 136 mmol/L (137-145); Total Protein 7.1 g/dL (6.3-8.2)
[2018-11-06 15:07] LABS: Appearance SLIGHTLY CLOUDY (CLEAR); Bacteria FEW /HPF (NEGATIVE); Bilirubin NEGATIVE (NEGATIVE); Blood NEGATIVE Ery/ul (0-5); Epithelial Cells RARE /HPF (FEW); Glucose NEGATIVE (NEGATIVE); Ketones NEGATIVE (NEGATIVE); Leukocyte Esterase LARGE (NEGATIVE); Mucus SLIGHT /HPF (NEGATIVE); Nitrite NEGATIVE (NEGATIVE); Protein,Urine Dip NEGATIVE (Negative); Specific Gravity 1.017 (1.005-1.025); Urobilinogen NEGATIVE mg/dL (0-1)
[2018-11-06] MEDS ORDERED: DEMEROL 50 MG ONE (15:12)
--- NOTE | 2018-11-06 15:15 | XRAY ---
Indication: Right flank pain. Multiple contiguous axial images obtained through the abdomen and pelvis without contrast using renal stone protocol. Comparison: None Lung bases demonstrates mild bibasilar atelectasis/scarring. No infiltrate or effusion. Heart is not enlarged. Small hiatal hernia. No renal calculus or evidence for obstructive uropathy in either system. Noncontrasted stomach and bowel loops appear nonobstructed. Normal air-filled appendix. Mild diffuse scattered colonic fecal debris throughout. Scattered descending and sigmoid diverticulosis. Previous cholecystectomy and hysterectomy. No free fluid/air. Remaining liver, pancreas, spleen, adrenal glands, kidneys, ureters, and bladder appear unremarkable for noncontrast exam. Mild aortoiliac calcifications without AAA. Osseous structures intact with mild degenerative spondylosis throughout the thoracolumbar spine including 2-3 mm L4 spondylolisthesis. Incidental right L5 spondylolysis without spondylolisthesis. No ventral or inguinal hernias. Impression: 1. Negative renal calculus or evidence for obstructive uropathy. 2. Mild fecal stasis without obstruction, scattered colonic diverticulosis, and small hiatal hernia. 3. Remaining CT abdomen/pelvis without contrast exam is negative. 4. Incidental multilevel degenerative spondylosis including grade 1 L4 spondylolisthesis and right L5 spondylolysis without spondylolisthesis. CT DI 21.44
[2018-11-06] MEDS ORDERED: ROCEPHIN 1 Gm-D5w 50 ml Bag** 1 G/50 ML IVPB IV STA (15:19)
[2018-11-06] MEDS ORDERED: ROCEPHIN 1 Gm-D5w 50 ml Bag** 1 G/50 ML IVPB IV ONE (15:21)
--- NOTE | 2018-11-06 16:03 | ERPHSYRPT ---
- History of Present Illness Time Seen by Provider: 11/06/18 14:00 Source: patient Patient Subjective Stated Complaint: "my right side low back and flank has been hurting for past couple days. " Triage Nursing Assessment: Aaox3, color good, resp easy, c/o right flank pain that radiates to right side low back for past couple days. States some urinary frequency/hesitancy. Lungs clear bilaterally. Last bm yesterday. Denies n/v, denies diarrhea. Physician History: 78 y/o white female presents with right side flank pain for 2 days. not getting better. some urinary frequency and dysuria. no trauma. no fall. Timing/Duration: day(s) (2) Method of Injury: other (no injury) Quality: sharp, stabbing Back Pain Location: lumbar spine (flank right side) Severity of Pain-Max: moderate Severity of Pain-Current: moderate Modifying Factors: Improves With: movement Associated Symptoms: lower back pain Previous symptoms: no prior history Allergies/Adverse Reactions: levofloxacin [From [employer]] Allergy (Verified 01/11/17 23:17) Home Medications: ALPRAZolam [Xanax 0.25 mg] 0.25 mg PO HSPRN PRN 03/29/16 [History] Ropinirole HCl [Requip] 1 mg PO DAILY 01/11/17 [History] Losartan/Hydrochlorothiazide [Losartan-Hctz 50-12.5 mg Tab] 1 tab PO DAILY 08/01 [History] Hx Tetanus, Diphtheria Vaccination/Date Given: Yes Hx Influenza Vaccination/Date Given: Yes Hx Pneumococcal Vaccination/Date Given: Yes - Review of Systems Constitutional: No Symptoms Eyes: No Symptoms Ears, Nose, & Throat: No Symptoms Respiratory: No Symptoms Cardiac: No Symptoms Abdominal/Gastrointestinal: No Symptoms Genitourinary Symptoms: Dysuria, Frequency, Flank Pain (right side) Musculoskeletal: Back Pain, No Fall, No Injury Skin: No Symptoms Neurological: No Symptoms Psychological: No Symptoms Endocrine: No Symptoms Hematologic/Lymphatic: No Symptoms Immunological/Allergic: No Symptoms All Other Systems: Reviewed and Negative - Past Medical History Pertinent Past Medical History: Yes Neurological History: No Pertinent History ENT History: No Pertinent History Cardiac History: High Cholesterol, Hypertension Respiratory History: Bronchitis Endocrine Medical History: No Pertinent History Musculoskeletal History: Other GI Medical History: No Pertinent History History: No Pertinent History Psycho-Social History: Anxiety Female Reproductive Disorders: No Pertinent History Other Medical History: stenosis of back - Past Surgical History Past Surgical History: Yes Neuro Surgical History: No Pertinent History Cardiac: No Pertinent History Respiratory: No Pertinent History Gastrointestinal: Cholecystectomy Genitourinary: No Pertinent History Musculoskeletal: No Pertinent History Female Surgical History: Hysterectomy Other Surgical History: Luis cataract surgery - Social History Smoking Status: Never smoker Exposure to second hand smoke: No Alcohol Use: None Drug Use: none Patient Lives Alone: No Significant Family History: no pertinent family hx - Female History Hx Now: No - Nursing Vital Signs Nursing Vital Signs: Initial Vital Signs Temperature 97.8 F 11/06/18 13:53 Pulse Rate 70 11/06/18 13:53 Respiratory Rate 20 11/06/18 13:53 Blood Pressure 206/95 11/06/18 13:53 O2 Sat by Pulse Oximetry 97 11/06/18 13:53 Pain Scale Pain Intensity 2 - Physical Exam General Appearance: mild distress, alert, anxiety Eye Exam: PERRL/EOMI, eyes nml inspection Ears, Nose, Throat Exam: normal ENT inspection, moist mucous membranes Neck Exam: normal inspection, non-tender, supple, full range of motion Respiratory Exam: normal breath sounds, lungs clear, airway intact, No chest tenderness, No respiratory distress Cardiovascular Exam: regular rate/rhythm, normal heart sounds, normal peripheral pulses Gastrointestinal Exam: soft, normal bowel sounds, No tenderness, No guarding, No rebound Pelvic Exam: not done Rectal Exam: not done Back Exam: normal inspection, normal range of motion, CVA tenderness (right), No vertebral tenderness Extremity Exam: normal inspection, normal range of motion, pelvis stable Neurologic Exam: alert, oriented x 3, 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, 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, normal mood/affect Skin Exam: normal color, warm, dry Lymphatic Exam: No adenopathy SpO2 Interpretation: borderline oxygenation SpO2: 90 Ordered Tests: Active Orders 24 hr Category Date Time Status IV Insertion STAT Care 11/06/18 14:13 Active ABDOMEN AND PELVIS W/0 CONTRAS [CT] Stat Exams 11/06/18 14:14 Completed AMYLASE Stat Lab 11/06/18 14:20 Completed CBC W DIFF Stat Lab 11/06/18 14:20 Completed CMP Stat Lab 11/06/18 14:20 Completed LIPASE Stat Lab 11/06/18 14:20 Completed UA W/RFX UR CULTURE Stat Lab 11/06/18 14:57 Completed Medication Summary Discontinued Medications Generic Name Dose Route Start Last Admin Trade Name Fatoumata PRN Reason Stop Dose Admin Hydromorphone HCl 0.5 mg 11/06/18 14:20 11/06/18 14:32 Hydromorphone 1 Mg/Ml Ampule IV 11/06/18 14:21 0.5 mg STAT ONE Administration Hydromorphone HCl Confirm 11/06/18 14:31 Hydromorphone 1 Mg/Ml Ampule Administered 11/06/18 14:32 Dose 1 mg .ROUTE .STK-MED ONE Sodium Chloride 1,000 mls @ 999 mls/hr 11/06/18 14:13 11/06/18 15:47 Sodium Chloride 0.9% 1000 Ml IV 11/06/18 15:13 Infused .Q1H1M STA Infusion Sodium Chloride Confirm 11/06/18 14:23 Sodium Chloride 0.9% 1000 Ml Administered 11/06/18 14:24 Dose 1,000 mls @ ud .ROUTE .STK-MED ONE Ceftriaxone Sodium/Dextrose 1 g in 50 mls @ 100 mls/hr 11/06/18 15:19 15:25 Rocephin 1 Gm-D5w 50 Ml Bag IV 11/06/18 15:48 100 mls/hr STAT STA 100 mls/hr Administration Ceftriaxone Sodium/Dextrose Confirm 11/06/18 15:21 Rocephin 1 Gm-D5w 50 Ml Bag Administered 11/06/18 15:22 Dose 1 g in 50 mls @ ud IV .STK-MED ONE Meperidine HCl Confirm 11/06/18 15:12 Demerol 50 Mg Administered 11/06/18 15:13 Dose 50 mg .ROUTE .STK-MED ONE Ondansetron HCl 4 mg 11/06/18 14:20 11/06/18 14:32 Zofran 4 Mg/2 Ml Vial IV 11/06/18 14:21 4 mg STAT ONE Administration Ondansetron HCl Confirm 11/06/18 14:29 Zofran 4 Mg/2 Ml Vial Administered 11/06/18 14:30 Dose 4 mg .ROUTE .STK-MED ONE Lab/Rad Data: Laboratory Result Diagrams 11/06/18 14:20 11/06/18 14:20 Laboratory Results 11/06/18 11/06/18 11/06/18 Range/Units 14:57 14:20 14:20 WBC 4.9 (4.0-10.5) K/mm3 RBC 4.18 (4.1-5.4) M/mm3 Hgb 13.1 (12.0-16.0) gm/dl Hct 38.8 (35-47) % MCV 92.8 (78-100) fl MCH 31.3 (26-32) pg MCHC 33.8 (32-36) g/dl RDW 13.7 (11.5-14.0) % Plt Count 229 (150-450) K/mm3 MPV 10.6 H (6-9.5) fl Gran % 42.1 (36.0-66.0) % Eos # (Auto) 0.13 (0-0.5) Absolute Lymphs (auto) 2.03 (1.0-4.6) Absolute Monos (auto) 0.62 (0.0-1.3) Lymphocytes % 41.8 (24.0-44.0) % Monocytes % 12.8 H (0.0-12.0) % Eosinophils % 2.7 (0.00-5.0) % Basophils % 0.6 (0.0-0.4) % Absolute Granulocytes 2.05 (1.4-6.9) Basophils # 0.03 (0-0.4) Sodium 136 L (137-145) mmol/L Potassium 3.5 (3.5-5.1) mmol/L Chloride 99 (98-107) mmol/L Carbon Dioxide 28 (22-30) mmol/L Anion Gap 12.4 (5-15) MEQ/L BUN 16 (7-17) mg/dL Creatinine 0.77 (0.52-1.04) mg/dL Estimated GFR > 60.0 ML/MIN Glucose 93 (74-106) mg/dL Calcium 9.5 (8.4-10.2) mg/dL Total Bilirubin 0.70 (0.2-1.3) mg/dL AST 32 (14-36) U/L ALT 20 (0-35) U/L Alkaline Phosphatase 78 (38-126) U/L Serum Total Protein 7.1 (6.3-8.2) g/dL Albumin 3.9 (3.5-5.0) g/dL Amylase 61 (30-110) U/L Lipase 58 (23-300) U/L Urine Color YELLOW (YELLOW) Urine Appearance SLIGHTLY CLOUDY (CLEAR) Urine pH 5.0 (5-6) Ur Specific [place] 1.017 (1.005-1.025) Urine Protein NEGATIVE (Negative) Urine Ketones NEGATIVE (NEGATIVE) Urine Blood NEGATIVE (0-5) Gustavo/ul Urine Nitrite NEGATIVE (NEGATIVE) Urine Bilirubin NEGATIVE (NEGATIVE) Urine Urobilinogen NEGATIVE (0-1) mg/dL Ur Leukocyte Esterase LARGE (NEGATIVE) Urine WBC (Auto) 6-10 (0-5) /HPF Urine RBC (Auto) 6-10 (0-2) /HPF U Epithel Cells (Auto) RARE (FEW) /HPF Urine Bacteria (Auto) FEW (NEGATIVE) /HPF Urine Mucus (Auto) SLIGHT (NEGATIVE) /HPF Urine Culture Reflexed NO (NO) Urine Glucose NEGATIVE (NEGATIVE) mg/dL - Progress Progress: improved Progress Note: 11/06/18 16:02 ct abd/pelvis-no acute process. Counseled pt/family regarding: lab results, diagnosis, need for follow-up, rad results - Departure Departure Disposition: Home Clinical Impression: Right flank pain, UTI (urinary tract infection) Condition: Stable Critical Care Time: No Referrals: SMITH HAYES MD [Primary Care Provider] - Additional Instructions: drink plenty of fluids. follow up with primary doctor for further management. Prescriptions: Hydrocodone/APAP 5/325 [[place] 5/325 mg] 1 each PO Q12H PRN PRN #6 tablet MDD 2 PRN Reason: Pain Smz/Tmp Ds Tablet [Bactrim Ds Tablet] 1 udtab PO BID #14 tablet
[2018-11-06 16:21] VITALS: BP 150/75; PULSE 62; O2SAT 96
== END 2018-11-06 16:45 | disposition home or self-care (01) ==
LOC: ED 13:48
DX: N39.0 Urinary tract infection, site not specified (principal); R10.9 Unspecified abdominal pain; M54.5 Low back pain; R30.0 Dysuria; R35.0 Frequency of micturition; I10 Essential (primary) hypertension; E78.00 Pure hypercholesterolemia, unspecified; Z79.899 Other long term (current) drug therapy
CPT/HCPCS: 36000; 36415; 74176; 80053; 81001; 82150; 83690; 85025; 96360; 96365; 96374; 96375; 99284; J0696; J1170; J2175; J2405

== ENCOUNTER 2018-11-06 22:23 | Observation (INO) | payer MEDICARE ==
[2018-11-06] MEDS ORDERED: MORPHINE SULFATE 4 MG INJ IV ONE (22:32)
[2018-11-06] MEDS ORDERED: Zofran 4 MG/2 ML VIAL IV ONE (22:32)
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
[2018-11-06] MEDS ORDERED: Zofran 4 MG/2 ML VIAL ONE (22:43)
[2018-11-06] MEDS ORDERED: MORPHINE SULFATE 4 MG INJ ONE (22:43)
[2018-11-06] MEDS ORDERED: Sodium Chloride 0.9% 1000 ML 1,000 ML ONE (22:43)
[2018-11-06] MEDS ORDERED: Sodium Chloride 0.9% 1000 ML 1,000 ML IV SCH (22:45)
[2018-11-06 23:15] LABS: BASOPHIL % 0.2 % (0.0-0.4); Basophil (Absolute #) 0.02 (0-0.4); Eosinophil % 1.1 % (0.00-5.0); Eosinophil (Absolute #) 0.09 (0-0.5); Granulocyte Absolute (ANC) 5.64 (1.4-6.9); Granulocytes % 69.7 % (36.0-66.0); Hematocrit 38.6 % (35-47); Hemoglobin 13.1 gm/dl (12.0-16.0); Lymphocyte (Absolute #) 1.75 (1.0-4.6); Lymphocytes % 21.6 % (24.0-44.0); Mean Cell Volume 93.5 fl (78-100); Mean Corpuscular Hemoglobin 31.7 pg (26-32); Mean Corpuscular Hgb Concent. 33.9 g/dl (32-36); Mean Platelet Volume 10.4 fl (6-9.5); Monocytes % 7.4 % (0.0-12.0); Platelet Count 204 K/mm3 (150-450); Red Blood Count 4.13 M/mm3 (4.1-5.4); Red Cell Distribution Width 13.7 % (11.5-14.0); White Blood Count 8.1 K/mm3 (4.0-10.5)
[2018-11-06 23:26] LABS: ALBUMIN 3.8 g/dL (3.5-5.0); ALKALINE PHOSPHATASE 73 U/L (38-126); AMYLASE 69 U/L (30-110); ANION GAP 14.8 MEQ/L (5-15); BLOOD UREA NITROGEN 15 mg/dL (7-17); CHLORIDE 101 mmol/L (98-107); Carbon Dioxide 24 mmol/L (22-30); Creatinine 1 0.63 mg/dL (0.52-1.04); Glucose 106 mg/dL (74-106); LIPASE 31 U/L (23-300); Potassium 3.3 mmol/L (3.5-5.1); SGOT/AST 36 U/L (14-36); SGPT/ALT 19 U/L (0-35); SODIUM 137 mmol/L (137-145)
[2018-11-07] MEDS ORDERED: TYLENOL 325 MG PO PRN (00:35)
[2018-11-07] MEDS: Sodium Chloride 0.9% 1000 ML 1,000 ML IV SCH ×2 (01:01→22:26)
[2018-11-07] MEDS: MORPHINE SULFATE 4 MG INJ IV PRN ×2 (01:01→04:50)
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
[2018-11-07] MEDS: ROCEPHIN 1 Gm-D5w 50 ml Bag** 1 G/50 ML IVPB IV SCH (09:13)
[2018-11-07] MEDS: ENOXAPARIN SODIUM SQ SCH (09:13)
[2018-11-07] MEDS ORDERED: xanAX 0.25 MG PO PRN (09:43)
[2018-11-07] MEDS ORDERED: Cozaar 50 MG PO SCH (10:00)
[2018-11-07] MEDS ORDERED: NON-FORMULARY ITEM (Losartan/Hydrochlorothiazide [Losartan-Hctz 50-12.5 Mg Tab] 1 TAB) PO SCH (10:00)
[2018-11-07] MEDS: ECOTRIN 81 MG PO SCH (10:08)
[2018-11-07] MEDS: hydroDIURIL 25 MG PO SCH (10:08)
[2018-11-07] MEDS: COREG 12.5 MG PO SCH ×2 (10:08→21:19)
[2018-11-07] MEDS: NORCO 5/325 MG PO PRN ×2 (10:42→22:39)
[2018-11-07] MEDS: Zofran 4 MG/2 ML VIAL IV PRN ×2 (12:42→22:33)
[2018-11-07] MEDS: Requip 0.5 MG PO SCH (21:19)
[2018-11-07] MEDS ORDERED: NON-FORMULARY ITEM (Ropinirole Hcl [Requip] 1 MG) PO SCH (22:00)
[2018-11-08 04:52] LABS: BASOPHIL % 0.3 % (0.0-0.4); Basophil (Absolute #) 0.02 (0-0.4); Eosinophil % 2.2 % (0.00-5.0); Eosinophil (Absolute #) 0.14 (0-0.5); Granulocyte Absolute (ANC) 3.83 (1.4-6.9); Granulocytes % 58.9 % (36.0-66.0); Lymphocyte (Absolute #) 1.68 (1.0-4.6); Lymphocytes % 25.8 % (24.0-44.0); Mean Corpuscular Hemoglobin 31.3 pg (26-32); Mean Corpuscular Hgb Concent. 33.3 g/dl (32-36); Mean Platelet Volume 10.2 fl (6-9.5); Monocyte (Absolute #) 0.83 (0.0-1.3); Monocytes % 12.8 % (0.0-12.0); Platelet Count 181 K/mm3 (150-450); Red Blood Count 3.83 M/mm3 (4.1-5.4); Red Cell Distribution Width 13.4 % (11.5-14.0); White Blood Count 6.5 K/mm3 (4.0-10.5)
[2018-11-08 05:04] LABS: ALBUMIN 3.2 g/dL (3.5-5.0); ALKALINE PHOSPHATASE 59 U/L (38-126); BLOOD UREA NITROGEN 7 mg/dL (7-17); CHLORIDE 100 mmol/L (98-107); Calcium 8.5 mg/dL (8.4-10.2); Carbon Dioxide 29 mmol/L (22-30); Creatinine 1 0.53 mg/dL (0.52-1.04); Glucose 105 mg/dL (74-106); Potassium 3.2 mmol/L (3.5-5.1); SGOT/AST 24 U/L (14-36); SGPT/ALT 15 U/L (0-35); SODIUM 135 mmol/L (137-145); Total Protein 6.1 g/dL (6.3-8.2)
[2018-11-08] MEDS ORDERED: APRESOLINE 20 MG/ML INJ IV ONE (06:11)
[2018-11-08] MEDS ORDERED: NORCO 5/325 MG PO PRN (08:19)
--- NOTE | 2018-11-08 08:23 | PCM.NOTE ---
Date and Time: 11/08/18818 Subjective Assessment: patient developed some vomiting yesterday, now complains of "twinge" of pain in her right upper quadrant. bp was very high earlier this morning, improved with IV hydralazine. Objective Exam General Appearance: mild distress (nauseated, holding emesis bag), alert Skin Exam: normal color, warm, dry Respiratory Exam: normal breath sounds, lungs clear, No respiratory distress Cardiovascular Exam: regular rate/rhythm, normal heart sounds Gastrointestinal/Abdomen Exam: soft, No tenderness, No mass OBJECTIVE DATA Vital Signs: Vital Signs - 24 hr Temp Pulse Resp BP Pulse Ox 11/08/18 07:30 97.9 F 82 18 145/67 98 11/08/18 04:10 98.1 F 70 18 173/71 98 11/08/18 04:00 97 11/07/18 23:30 98.3 F 70 18 190/77 97 11/07/18 20:04 69 20 94 L 11/07/18 19:15 98.2 F 66 20 195/81 93 L 11/07/18 16:00 98.2 F 73 18 186/83 92 L 11/07/18 12:00 95 11/07/18 11:42 97.8 F 62 18 170/74 95 Oxygen-Last 24 hours O2 Percentage 2 Liters = 28% O2 Percentage 2 Liters = 28% O2 Percentage 2 Liters = 28% Oxygen Flowrate (L/min)-RT 2 Oxygen Flowrate (L/min)-RT 2 Pain Assessment - Last Documented Pain Intensity [Lower Back] 10 Pain Intensity 3 Pain Scale Used 0-10 Pain Scale Intake and Output: Intake & Output 11/05/18 11/06/18 11/07/18 11/08/18 11:59 11:59 11:59 11:59 Intake Total 269 1521 Output Total 700 2050 Balance -431 -529 Weight 79.5 kg Lab Results: Lab Results-Last 24 Hours 11/08/18 11/08/18 Range/Units 04:50 04:50 WBC 6.5 (4.0-10.5) K/mm3 RBC 3.83 L (4.1-5.4) M/mm3 Hgb 12.0 (12.0-16.0) gm/dl Hct 36.0 (35-47) % MCV 94.0 (78-100) fl MCH 31.3 (26-32) pg MCHC 33.3 (32-36) g/dl RDW 13.4 (11.5-14.0) % Plt Count 181 (150-450) K/mm3 MPV 10.2 H (6-9.5) fl Gran % 58.9 (36.0-66.0) % Eos # (Auto) 0.14 (0-0.5) Absolute Lymphs (auto) 1.68 (1.0-4.6) Absolute Monos (auto) 0.83 (0.0-1.3) Lymphocytes % 25.8 (24.0-44.0) % Monocytes % 12.8 H (0.0-12.0) % Eosinophils % 2.2 (0.00-5.0) % Basophils % 0.3 (0.0-0.4) % Absolute Granulocytes 3.83 (1.4-6.9) Basophils # 0.02 (0-0.4) Sodium 135 L (137-145) mmol/L Potassium 3.2 L (3.5-5.1) mmol/L Chloride 100 (98-107) mmol/L Carbon Dioxide 29 (22-30) mmol/L Anion Gap 9.0 (5-15) MEQ/L BUN 7 (7-17) mg/dL Creatinine 0.53 (0.52-1.04) mg/dL Estimated GFR > 60.0 ML/MIN Glucose 105 (74-106) mg/dL Calcium 8.5 (8.4-10.2) mg/dL Total Bilirubin 0.60 (0.2-1.3) mg/dL AST 24 (14-36) U/L ALT 15 (0-35) U/L Alkaline Phosphatase 59 (38-126) U/L Serum Total Protein 6.1 L (6.3-8.2) g/dL Albumin 3.2 L (3.5-5.0) g/dL Assessment/Plan (1) Acute pyelonephritis Current Visit: Yes Status: Acute Assessment & Plan: urine culture no growth at this time, awaiting final report. currently on rocephin. appears her flank pain is improved, surprised at no growth u/a large thomas est with 6-10 wbc/hpf and blood present Code(s): N10 - ACUTE PYELONEPHRITIS (2) Abdominal pain Current Visit: Yes Status: Acute Assessment & Plan: ct abd/pel from ER 11/06 nothing acute. will add IV protonix, replace potassium and continue current care. repeat labs in am Code(s): R10.9 - UNSPECIFIED ABDOMINAL PAIN (3) Essential hypertension Current Visit: No Status: Chronic Assessment & Plan: increase losartan from 50 to 100mg today Code(s): I10 - ESSENTIAL (PRIMARY) HYPERTENSION
[2018-11-08] MEDS ORDERED: SODIUM CHLORIDE 0.45% W/ 20 mEq KCL 1,000 ML IV SCH (08:30)
[2018-11-08] MEDS: Zofran 4 MG/2 ML VIAL IV PRN (09:09)
[2018-11-08] MEDS: ROCEPHIN 1 Gm-D5w 50 ml Bag** 1 G/50 ML IVPB IV SCH (09:15)
[2018-11-08] MEDS: ENOXAPARIN SODIUM SQ SCH (09:16)
[2018-11-08] MEDS: hydroDIURIL 25 MG PO SCH (09:16)
[2018-11-08] MEDS: ECOTRIN 81 MG PO SCH (09:18)
[2018-11-08] MEDS: COREG 12.5 MG PO SCH ×2 (09:18→21:00)
[2018-11-08] MEDS: Cozaar 50 MG PO SCH (09:18)
[2018-11-08] MEDS ORDERED: PROTONIX 40 MG IV IV SCH (10:00)
[2018-11-08] MEDS: Pepcid 20 MG VIAL IV SCH (10:14)
[2018-11-08] MEDS ORDERED: Sodium Chloride 0.9% 10 ML FLUSH Syringe IV PRN (13:15)
[2018-11-08 18:21] LABS: Appearance CLEAR (CLEAR); Bilirubin NEGATIVE (NEGATIVE); Blood SMALL Ery/ul (0-5); Epithelial Cells RARE /HPF (FEW); Glucose NEGATIVE (NEGATIVE); Ketones NEGATIVE (NEGATIVE); Leukocyte Esterase TRACE (NEGATIVE); Mucus SLIGHT /HPF (NEGATIVE); Nitrite NEGATIVE (NEGATIVE); Protein,Urine Dip NEGATIVE (Negative); RBC 0-2 /HPF (0-2); Specific Gravity 1.004 (1.005-1.025); Urobilinogen NEGATIVE mg/dL (0-1); WBC 0-2 /HPF (0-5)
[2018-11-08] MEDS: Requip 0.5 MG PO SCH (21:00)
[2018-11-08] MEDS: Sodium Chloride 0.9% 10 ML FLUSH Syringe IV SCH (21:00)
[2018-11-09 05:56] LABS: BASOPHIL % 0.4 % (0.0-0.4); Basophil (Absolute #) 0.02 (0-0.4); Eosinophil % 3.3 % (0.00-5.0); Eosinophil (Absolute #) 0.17 (0-0.5); Granulocyte Absolute (ANC) 2.77 (1.4-6.9); Granulocytes % 54.4 % (36.0-66.0); Hematocrit 35.1 % (35-47); Hemoglobin 11.9 gm/dl (12.0-16.0); Lymphocyte (Absolute #) 1.48 (1.0-4.6); Lymphocytes % 29.1 % (24.0-44.0); Mean Cell Volume 93.4 fl (78-100); Mean Corpuscular Hemoglobin 31.6 pg (26-32); Mean Corpuscular Hgb Concent. 33.9 g/dl (32-36); Mean Platelet Volume 10.7 fl (6-9.5); Monocyte (Absolute #) 0.65 (0.0-1.3); Monocytes % 12.8 % (0.0-12.0); Platelet Count 186 K/mm3 (150-450); Red Blood Count 3.76 M/mm3 (4.1-5.4); Red Cell Distribution Width 13.6 % (11.5-14.0); White Blood Count 5.1 K/mm3 (4.0-10.5)
[2018-11-09 06:11] LABS: ALBUMIN 3.1 g/dL (3.5-5.0); ALKALINE PHOSPHATASE 63 U/L (38-126); AMYLASE 46 U/L (30-110); ANION GAP 9.2 MEQ/L (5-15); BLOOD UREA NITROGEN 6 mg/dL (7-17); CHLORIDE 100 mmol/L (98-107); Calcium 8.6 mg/dL (8.4-10.2); Carbon Dioxide 31 mmol/L (22-30); Creatinine 1 0.51 mg/dL (0.52-1.04); Glucose 101 mg/dL (74-106); LIPASE 45 U/L (23-300); SGOT/AST 24 U/L (14-36); SGPT/ALT 15 U/L (0-35); SODIUM 137 mmol/L (137-145); Total Protein 5.9 g/dL (6.3-8.2)
[2018-11-09] MEDS ORDERED: Sodium Chloride 0.9% 10 ML FLUSH Syringe IV SCH (08:00)
[2018-11-09] MEDS: Sodium Chloride 0.9% 10 ML FLUSH Syringe IV SCH ×3 (10:23→15:07)
[2018-11-09] MEDS: Cozaar 50 MG PO SCH (10:23)
[2018-11-09] MEDS: ECOTRIN 81 MG PO SCH (10:23)
[2018-11-09] MEDS: hydroDIURIL 25 MG PO SCH (10:23)
[2018-11-09] MEDS: COREG 12.5 MG PO SCH (10:24)
[2018-11-09] MEDS: Pepcid 20 MG VIAL IV SCH (10:24)
[2018-11-09] MEDS: ROCEPHIN 1 Gm-D5w 50 ml Bag** 1 G/50 ML IVPB IV SCH (10:24)
[2018-11-09] MEDS: ENOXAPARIN SODIUM SQ SCH (10:26)
[2018-11-09] MEDS ORDERED: POTASSIUM CHLORIDE 20 mEq IN WATER 100ML 20 MEQ/100 ML BAG IV SCH (12:00)
[2018-11-09 12:03] VITALS: BP 181/77
[2018-11-09] MEDS ORDERED: Klor Con 10 MEQ PO ONE (12:42)
--- NOTE | 2018-11-09 15:40 | XRAY ---
Indication: Pain. No known injury. Comparison: None 2 views of the right ribs demonstrates mild osteopenia, mild right AC degenerative arthropathy, mild multilevel thoracolumbar degenerative spondylosis, mild aortic calcifications, small right effusion, and abdominal surgical clips. No other bony, articular, or soft tissue abnormalities. Comment: Preliminary interpretation was made by [facility] who does not report right effusion and is a new finding since CT abdomen/pelvis November 06, 2018.
--- NOTE | 2018-11-09 15:44 | XRAY ---
Indication: Thoracic pain. No known injury. Comparison: None AP/lateral thoracic spine demonstrates 12 typical rib-bearing thoracic segments with minimal upper thoracic scoliosis, mild osteopenia, mild multilevel degenerative spondylosis, mild right AC degenerative arthropathy, mild aortic calcifications, small right effusion, and cholecystectomy clips. No other bony, articular, or soft tissue abnormalities. Comment: Preliminary interpretation was made by [facility] who does not report right effusion and is a new finding since CT abdomen/pelvis November 06, 2018.
[2018-11-09 16:10] VITALS: PULSE 68; O2SAT 92
== END 2018-11-09 16:15 | disposition home or self-care (01) ==
LOC: ED 22:23 → MED SURG 11-07 00:34
PROVIDERS: ADMIT Family Medicine; ATTEND Family Medicine
DX: N10 Acute pyelonephritis (principal); R10.11 Right upper quadrant pain; R11.2 Nausea with vomiting, unspecified; I10 Essential (primary) hypertension; E78.00 Pure hypercholesterolemia, unspecified; Z79.899 Other long term (current) drug therapy
CPT/HCPCS: 36000; 36415; 71100; 72072; 80053; 81001; 82150; 83605; 83690; 85025; 87086; 93268; 94760; 96360; 96374; 96375; 99285; G0378; J0360; J0696; J1650; J2270; J2405; A9270-GY

== ENCOUNTER 2019-01-25 10:38 | Emergency (ER) | payer MEDICARE ==
--- NOTE | 2019-01-25 12:18 | ERPHSYRPT ---
- History of Present Illness Source: patient Exam Limitations: no limitations Patient Subjective Stated Complaint: pt reports just [employer]NA[employer] she lost her balance while walking outside on the sidewalk causing her to fall. pt reports striking her head on the concrete. pt denies LOC. Triage Nursing Assessment: pt is aox3, pupils perrl, afebrile, resps easy and non labored, cap refill < 3 seconds, radial pulses strong and equal, pt skin pink warm dry. skin tear noted to the left elbow, left fifth finger, abrasions noted to bilat knees, nose, and left sided forehead. Physician History: Pt is a 78 y/o female that was walking outside, and stopped near a window of a shop, she tried to turn to walk, lost her ballance and fell straight on her face. She has some skin tears, and small scrape on her nose, but secondary to bug hematoma on the L forehead, and her being on ASA, she came to the ER. Pt denies LOC, she denies double vision or blurry vision. No change in sensation, or any other focality. Occurred: just prior to arrival Severity: moderate Head Injury Location: frontal (L forehead) Method of Injury: fell Loss of Consciousness: no loss of consciousness Associated Symptoms: denies symptoms Allergies/Adverse Reactions: levofloxacin [From Levaquin] Allergy (Verified 01/25/19 10:55) Home Medications: Losartan/Hydrochlorothiazide [Losartan-Hctz 50-12.5 mg Tab] 1 tab PO DAILY 08/01 [History] Lovastatin 20 mg PO HS 11/07/18 [History] Hx Tetanus, Diphtheria Vaccination/Date Given: Yes Hx Influenza Vaccination/Date Given: Yes Hx Pneumococcal Vaccination/Date Given: Yes Immunizations Up to Date: Yes - Review of Systems Constitutional: No Fever, No Chills Eyes: No Symptoms Ears, Nose, & Throat: No Symptoms Respiratory: No Cough, No Dyspnea Cardiac: No Chest Pain, No Edema, No Syncope Abdominal/Gastrointestinal: No Abdominal Pain, No Nausea, No Vomiting, No Diarrhea Genitourinary Symptoms: No Dysuria Musculoskeletal: Other (L forehead swelling post fall) Skin: Other (some skin tears on extremities) Neurological: Headache (Secondary to fall) - Past Medical History Pertinent Past Medical History: Yes Neurological History: No Pertinent History ENT History: No Pertinent History Cardiac History: High Cholesterol, Hypertension Respiratory History: Bronchitis Endocrine Medical History: No Pertinent History Musculoskeletal History: Other GI Medical History: No Pertinent History History: No Pertinent History Psycho-Social History: Anxiety Female Reproductive Disorders: No Pertinent History Other Medical History: stenosis of back - Past Surgical History Past Surgical History: Yes Neuro Surgical History: No Pertinent History Cardiac: No Pertinent History Respiratory: No Pertinent History Gastrointestinal: Cholecystectomy Genitourinary: No Pertinent History Musculoskeletal: No Pertinent History Female Surgical History: Hysterectomy Other Surgical History: Luis cataract surgery - Social History Smoking Status: Former smoker Exposure to second hand smoke: No Alcohol Use: None Drug Use: none Patient Lives Alone: No Significant Family History: no pertinent family hx - Female History Hx Now: No - Nursing Vital Signs Nursing Vital Signs: Initial Vital Signs Temperature 98.2 F 01/25/19 10:45 Pulse Rate 64 01/25/19 10:45 Respiratory Rate 20 01/25/19 10:45 Blood Pressure 187/85 01/25/19 10:45 Pain Scale Pain Intensity 0 - Ste[place]any Coma Score Best Eye Response ([place]): (4) open spontaneously Best Verbal Response ([place]): (5) oriented Best Motor Response ([place]): (6) obeys commands [place] Total: 15 - Physical Exam General Appearance: no apparent distress, alert Head Injury: swelling (L forehead hematoma), tenderness (L forehead hematoma) Eye Exam: bilateral eye: normal inspection, PERRL, EOMI ENT Exam: airway nml Cardiovascular/Respiratory Exam: chest non-tender, normal breath sounds, regular rate/rhythm Gastrointestinal/Abdominal Exam: soft, non tender, no distention Back Exam: normal inspection, No vertebral tenderness Extremity Exam: non-tender, normal range of motion, normal inspection Mental Status Exam: alert, oriented x 3, cooperative Motor/Sensory Exam: no motor deficit, no sensory deficit, CN II-XII intact Skin Exam: normal color, warm, dry, other (Multiple skin tears from fall on extremities.), No rash - Course Nursing assessment & vital signs reviewed: Yes - CT Exams Head CT Interpretation: Negative (No acute intracranial findings) Maxillofacial Bones CT Interpretation: Tele-radiologist Report (Soft tissue swelling, hematoma over the L forehead. Moderate to severe b/l pansinusitis) Ordered Tests: Active Orders 24 hr Category Date Time Status FACIAL BONES WO CONTRAST [CT] Stat Exams 01/25/19 11:04 Taken HEAD WITHOUT CONTRAST [CT] Stat Exams 01/25/19 11:04 Taken - Progress Progress: unchanged Progress Note: 01/25/19 12:21 Pt was seen and examined. Her neuro exam was benign. CT of face and head was negative for fractures, or intracranial bleed. Pt declined treatment for sinusitis. Pt was instructed, to ice the hematoma, and f/u with her PCP. Will see patient in: office Counseled pt/family regarding: need for follow-up - Departure Departure Disposition: Home Clinical Impression: Head injury due to trauma Condition: Stable Critical Care Time: No Referrals: SMITH HAYES MD [Primary Care Provider] - Additional Instructions: Ice the hematoma, Rest, and f/u with PCP.
[2019-01-25 12:34] VITALS: BP 143/81; PULSE 63; O2SAT 95
[2019-01-25] MEDS ORDERED: BACIGUENT PACKET TP ONE (12:36)
--- NOTE | 2019-01-25 19:17 | XRAY ---
Indication: Head injury following fall. Facial/forehead bruising/swelling. Multiple contiguous axial images obtained through the facial bones. Sagittal and coronal reformatted images obtained. Comparison: None A few right dental amalgams produces beam artifact. No acute fracture, suspicious bony lesions, or radiopaque foreign body. Orbits including roof, covarrubias, and floors are intact. Mild left facial and left forehead soft tissue swelling. Nasal passages are clear with minimal nasal septal deviation. There is near complete opacification of both ethmoid, sphenoid, and maxillary sinuses with lesser degree frontal sinuses. Moderate left TMJ degenerative changes. CT head reported separately. Impression: Left face and left forehead soft tissue swelling. No acute fracture. Incidental pansinusitis and left TMJ degenerative changes. Comment: Preliminary interpretation was made by [facility]. No discrepancy. CTDI 59.47
--- NOTE | 2019-01-25 19:20 | XRAY ---
Indication: Head injury following fall. Facial/forehead bruising/swelling. Multiple contiguous axial images obtained through the head without contrast. Comparison: None Age-appropriate global atrophy. No acute intracranial hemorrhage, abnormal extra-axial fluid collection, or mass effect. Fourth ventricle is midline without hydrocephalus. Chirinos-white matter differentiation preserved. Mild left forehead soft tissue swelling. Bony calvarium intact. There is near complete opacification of both ethmoid, sphenoid, and maxillary sinuses with lesser degree frontal sinuses. CT facial bones reported separately. Impression: Left forehead soft tissue swelling. No underlying fracture or acute intracranial abnormalities. Incidental pansinusitis. Comment: Preliminary interpretation was made by [facility]. No discrepancy. CTDI 67.99
== END 2019-01-25 12:33 | disposition home or self-care (01) ==
LOC: ED 10:38
DX: S09.90XA Unspecified injury of head, initial encounter (principal); W01.198A Fall on same level from slipping, tripping and stumbling with subsequent striking against other object, initial encounter; Y93.01 Activity, walking, marching and hiking; Y92.480 Sidewalk as the place of occurrence of the external cause; T14.8XXA Other injury of unspecified body region, initial encounter
CPT/HCPCS: 70450; 70486; 99283; A9270-GY

== ENCOUNTER 2019-05-30 18:42 | Emergency (ER) | payer MEDICARE ==
--- NOTE | 2019-05-30 20:24 | ERPHSYRPT ---
- History of Present Illness Time Seen by Provider: 05/30/19 19:00 Patient Subjective Stated Complaint: pt tripped and fell on carpet 20 mins ago, she landed on righ knee and hit right side of neck on chair. no loc Triage Nursing Assessment: pt alert and walked in, resp easy. skin w/d/p. has bruising to right arm, abrasion and pain to right knee, also co right sided neck pain,no bruising noted Physician History: patient is a 78-year-old female who was staying at her door turned and tripped over her cat. She complains of pain in the right lateral neck and in the right knee. She denies any other pain or injury. Timing/Duration: today Quality: sharpness Severity of Pain-Max: mild Severity of Pain-Current: mild Allergies/Adverse Reactions: levofloxacin [From Levaquin] Allergy (Verified 05/30/19 18:53) Home Medications: Losartan/Hydrochlorothiazide [Losartan-Hctz 50-12.5 mg Tab] 1 tab PO DAILY 08/01 [History] Lovastatin 20 mg PO HS 11/07/18 [History] Hx Tetanus, Diphtheria Vaccination/Date Given: Yes Hx Influenza Vaccination/Date Given: Yes Hx Pneumococcal Vaccination/Date Given: Yes Immunizations Up to Date: Yes - Review of Systems Constitutional: No Fever, No Chills Eyes: No Symptoms Ears, Nose, & Throat: No Symptoms Respiratory: No Cough, No Dyspnea Cardiac: No Chest Pain, No Edema, No Syncope Abdominal/Gastrointestinal: No Abdominal Pain, No Nausea, No Vomiting, No Diarrhea Genitourinary Symptoms: No Dysuria Musculoskeletal: Neck Pain, Joint Pain, No Back Pain Skin: No Rash Neurological: No Dizziness, No Focal Weakness, No Sensory Changes Psychological: No Symptoms Endocrine: No Symptoms All Other Systems: Reviewed and Negative - Past Medical History Pertinent Past Medical History: Yes Neurological History: No Pertinent History ENT History: No Pertinent History Cardiac History: High Cholesterol, Hypertension Respiratory History: Bronchitis Endocrine Medical History: No Pertinent History Musculoskeletal History: Other GI Medical History: No Pertinent History History: No Pertinent History Psycho-Social History: Anxiety Female Reproductive Disorders: No Pertinent History Other Medical History: stenosis of back - Past Surgical History Past Surgical History: Yes Neuro Surgical History: No Pertinent History Cardiac: No Pertinent History Respiratory: No Pertinent History Gastrointestinal: Cholecystectomy, Exploratory Laparoscopy Genitourinary: No Pertinent History Musculoskeletal: No Pertinent History Female Surgical History: Hysterectomy Other Surgical History: Luis cataract surgery - Social History Smoking Status: Former smoker Exposure to second hand smoke: No Alcohol Use: None Drug Use: none Patient Lives Alone: Yes Significant Family History: no pertinent family hx - Female History Hx Last Menstrual Period: post Hx Now: No - Nursing Vital Signs Nursing Vital Signs: Initial Vital Signs Temperature 98.6 F 05/30/19 18:47 Pulse Rate 75 05/30/19 18:47 Respiratory Rate 16 05/30/19 18:47 O2 Sat by Pulse Oximetry 179 H 05/30/19 18:47 Pain Scale Pain Intensity 4 - Physical Exam General Appearance: mild distress Eye Exam: PERRL/EOMI Ears, Nose, Throat Exam: normal ENT inspection, moist mucous membranes Neck Exam: normal inspection, supple, full range of motion, midline tenderness, No meningismus Respiratory Exam: normal breath sounds, lungs clear Cardiovascular Exam: regular rate/rhythm, normal heart sounds Gastrointestinal/Abdominal Exam: soft, No tenderness, No distention Back Exam: normal inspection, normal range of motion Extremity Exam: tenderness (over her right patella+) Mental Status Exam: alert, oriented x 3, 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 Exam: normal speech, PERRL, No facial droop Coordination/Gait Exam: normal cerebellar function Motor/Sensory Exam: no motor deficit, no sensory deficit Skin Exam: normal color, warm, dry, No rash SpO2: 179 - Course Nursing assessment & vital signs reviewed: Yes - Radiology Exams C-Spine X-ray Interpretation: Interpreted by me (x-rays of the cervical spine and the right knee are negative) Ordered Tests: Active Orders 24 hr Category Date Time Status CERVICAL SPINE (2 OR 3 VIEW) Stat Exams 05/30/19 19:19 Taken KNEE (1 OR 2 VIEW) Stat Exams 05/30/19 19:19 Taken - Progress Progress: unchanged Air Movement: good Blood Culture(s) Obtained: No Antibiotics given: No - Departure Departure Disposition: Home Clinical Impression: Fall, Cervical strain, Knee contusion Condition: Stable Critical Care Time: No Referrals: SMITH HAYES MD [Primary Care Provider] - Instructions: Contusion (DC), Preventing Falls
[2019-05-30 21:19] VITALS: BP 144/64; PULSE 61; O2SAT 97
--- NOTE | 2019-05-31 07:22 | XRAY ---
Indication: Pain/bruising following fall. Comparison: None AP/lateral right knee obtained. No bony, articular, or soft tissue abnormalities.
--- NOTE | 2019-05-31 07:25 | XRAY ---
Indication: Pain following fall. Comparison: None 3 views of the cervical spine demonstrates mild/moderate C4-C7 degenerative disc disease as evidenced by disc space narrowing and endplate spurring. Also mild multilevel bilateral degenerative facet hypertrophy. No acute fracture, subluxation, or soft tissue abnormalities. Impression: Multilevel degenerative changes. Negative acute fracture/subluxation.
== END 2019-05-30 21:20 | disposition home or self-care (01) ==
LOC: ED 18:42
DX: S16.1XXA Strain of muscle, fascia and tendon at neck level, initial encounter (principal); S80.01XA Contusion of right knee, initial encounter; W01.0XXA Fall on same level from slipping, tripping and stumbling without subsequent striking against object, initial encounter
CPT/HCPCS: 72040; 73560; 99283

== ENCOUNTER 2019-11-05 07:46 | Inpatient (IN) | payer MEDICARE ==
[2019-11-05] MEDS ORDERED: Zofran 4 MG/2 ML VIAL IV ONE (08:08)
[2019-11-05] MEDS ORDERED: TYLENOL 325 MG PO STA (08:10)
--- NOTE | 2019-11-05 08:18 | ERPHSYRPT ---
- History of Present Illness Time Seen by Provider: 11/05/19 08:05 Source: patient, EMS Exam Limitations: no limitations Patient Subjective Stated Complaint: PT states "I was really nauseated this morning and I went to the bathroom and passed out." Triage Nursing Assessment: PT presented alert and oriented X 3, skin pwd Pt able to speak in clear full sentences pt in no apparent respiratory distress. Pt has laceration noted to left eyebrow, hematoma noted to left elbow, tenderness to left lower ribs. Physician History: 79 years old female with history of hypertension, hyperlipidemia presented in the ER via EMS with chief complaint syncopal episode. Patient reports she was having some chills and nauseated this morning, got up/went to the bathroom, started to feel dizzy/lightheaded and collapsed leading to fall on the floor hitting her left forehead with a laceration. There was bleeding initially but stopped after applying pressure. She was out for a few seconds to a minute and regained consciousness, and called her daughter and was rushed to ER via EMS. She also has a small hematoma left elbow area but no pain with movements or tenderness. She is also complaining of mild pain in the left anterior chest wall. Denies any abdominal wall. Nausea is better now. She also has off-and- on mild productive cough but was not sure of having fever, on EMS check it is 102. Denies any sick contact. No chest pain/palpitations or shortness of breath otherwise. Timing/Duration: today, sudden Severity: moderate Associated Symptoms: nausea, fever, syncope, No abdominal pain, No headaches Allergies/Adverse Reactions: levofloxacin [From Levaquin] Allergy (Verified 05/30/19 18:53) Home Medications: Losartan/Hydrochlorothiazide [Losartan-Hctz 50-12.5 mg Tab] 1 tab PO DAILY 08/01 [History] Lovastatin 20 mg PO HS 11/07/18 [History] Hx Tetanus, Diphtheria Vaccination/Date Given: Yes Hx Influenza Vaccination/Date Given: Yes Hx Pneumococcal Vaccination/Date Given: Yes Immunizations Up to Date: Yes Travel Risk - International Travel Have you traveled outside of the country in past 3 weeks: No - Coronavirus Screening Are you exhibiting any of the following symptoms?: Yes Symptoms: Fever, Vomiting/Diarrhea, Headaches/Body Aches/Fatigue Close contact with a COVID-19 positive Pt in past 14-21 Days: No - Review of Systems Constitutional: Chills, Fatigue Eyes: No Symptoms Ears, Nose, & Throat: No Symptoms Respiratory: Cough Cardiac: Chest Pain (Anterior chest wall) Abdominal/Gastrointestinal: Nausea Genitourinary Symptoms: No Symptoms Musculoskeletal: No Symptoms Skin: Skin Lesions Neurological: No Symptoms Psychological: No Symptoms Endocrine: No Symptoms Hematologic/Lymphatic: No Symptoms Immunological/Allergic: No Symptoms - Past Medical History Pertinent Past Medical History: Yes Neurological History: No Pertinent History ENT History: No Pertinent History Cardiac History: Hypertension Respiratory History: Bronchitis Endocrine Medical History: No Pertinent History Musculoskeletal History: Other GI Medical History: No Pertinent History History: No Pertinent History Psycho-Social History: Anxiety Female Reproductive Disorders: No Pertinent History Other Medical History: stenosis of back - Past Surgical History Past Surgical History: Yes Neuro Surgical History: No Pertinent History Cardiac: No Pertinent History Respiratory: No Pertinent History Gastrointestinal: Cholecystectomy, Exploratory Laparoscopy Genitourinary: No Pertinent History Musculoskeletal: No Pertinent History Female Surgical History: Hysterectomy Other Surgical History: Luis cataract surgery - Social History Smoking Status: Former smoker Exposure to second hand smoke: No Alcohol Use: None Drug Use: none Patient Lives Alone: Yes Significant Family History: no pertinent family hx - Female History Hx Now: No - Nursing Vital Signs Nursing Vital Signs: Initial Vital Signs Temperature 102.2 F 11/05/19 07:47 Pulse Rate 95 H 11/05/19 07:47 Respiratory Rate 24 11/05/19 07:47 Blood Pressure 143/65 11/05/19 07:47 O2 Sat by Pulse Oximetry 95 11/05/19 07:47 Pain Scale Pain Intensity 2 - Physical Exam General Appearance: no apparent distress Eye Exam: PERRL/EOMI, other (Jagged edges superficial skin tear and small laceration with no active bleeding or spurting. Hematoma underneath. Tenderness in the eyebrow area.) Neck Exam: normal inspection, non-tender, supple, full range of motion Respiratory Exam: normal breath sounds, chest tenderness (Left anterior lower), lungs clear Cardiovascular Exam: regular rate/rhythm, normal heart sounds Back Exam: normal inspection, normal range of motion Extremity Exam: normal range of motion, other (Skin tear left elbow area with hematoma, intact range of motion) Neurologic Exam: alert, oriented x 3, cooperative, [employer] II-XII nml as tested, normal mood/affect, nml cerebellar function, sensation nml Skin Exam: normal color SpO2 Interpretation: normal SpO2: 95 O2 Delivery: Room Air Procedures - Laceration/Wound Repair Left Frontal Wound Location: Left, forehead, face Wound Length (cm): 4.5 Wound's Depth, Shape: superficial Wound Explored: clean Irrigated: Yes Hibiclens Prep: Yes Wound Repaired With: Steri-strips, Dermabond Layer Closure?: No - Course Nursing assessment & vital signs reviewed: Yes EKG Interpreted by Me: RATE (88), Sinus Rhythm, NORMAL AXIS, NORMAL INTERVALS, Other (nonSpecific T wave changes) Ordered Tests: Active Orders 24 hr Category Date Time 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/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 08:09 Active EKG-ER Only STAT Care 11/05/19 08:08 Active IV Insertion STAT Care 11/05/19 08:08 Active CERVICAL SPINE WO CONTRAST [CT] Stat Exams 11/05/19 08:10 Completed CHEST WITHOUT CONTRAST [CT] Routine Exams 11/05/19 09:20 Completed HEAD WITHOUT CONTRAST [CT] Stat Exams 11/05/19 08:09 Completed BNP [NT PRO BNP] Stat Lab 11/05/19 11:15 Ordered CBC W DIFF Stat Lab 11/05/19 09:00 Completed CMP Stat Lab 11/05/19 09:00 Completed LIPASE Stat Lab 11/05/19 09:00 Completed Lactic Acid Stat Lab 11/05/19 09:00 Completed MAGNESIUM Stat Lab 11/05/19 09:00 Completed TROPONIN Q3H Lab 11/05/19 09:00 Completed TROPONIN Q3H Lab 11/05/19 11:15 Ordered TROPONIN Q3H Lab 11/05/19 14:15 Ordered TROPONIN Q3H Lab 11/05/19 17:15 Ordered TROPONIN Q3H Lab 11/05/19 20:15 Ordered UA W/RFX UR CULTURE Stat Lab 11/05/19 08:09 Ordered Transfer Order Routine Transfer 11/05/19 Ordered Medication Summary Generic Name Dose Route Start Last Admin Trade Name Freq PRN Reason Stop Dose Admin Ceftriaxone Sodium/Dextrose 2 g in 50 mls @ 100 mls/hr 11/05/19 11:17 Rocephin 2 Gm-D5w 50ml Bag IV 11/05/19 11:46 STAT STA Azithromycin 500 mg in 250 mls @ 250 mls/hr 11/05/19 11:17 Zithromax 500 Mg/ 250 Ml Nacl Premix IV 11/05/19 12:16 STAT STA Discontinued Medications Generic Name Dose Route Start Last Admin Trade Name Fatoumata PRN Reason Stop Dose Admin Acetaminophen 650 mg 11/05/19 08:10 11/05/19 08:23 Tylenol 325 Mg PO 11/05/19 08:11 650 mg STAT STA Administration Acetaminophen Confirm 11/05/19 08:19 Tylenol 325 Mg Administered 11/05/19 08:20 Dose 650 mg .ROUTE .STK-MED ONE Sodium Chloride 500 mls @ 499 mls/hr 11/05/19 08:08 11/05/19 10:00 Sodium Chloride 0.9% 1000 Ml IV 11/05/19 09:08 Infused .Q1H1M STA Infusion Sodium Chloride Confirm 11/05/19 08:19 Sodium Chloride 0.9% 1000 Ml Administered 11/05/19 08:20 Dose 1,000 mls @ ud .ROUTE .STK-MED ONE Ondansetron HCl 4 mg 11/05/19 08:08 11/05/19 08:23 Zofran 4 Mg/2 Ml Vial IV 11/05/19 08:09 4 mg STAT ONE Administration Ondansetron HCl Confirm 11/05/19 08:19 Zofran 4 Mg/2 Ml Vial Administered 11/05/19 08:20 Dose 4 mg .ROUTE .STK-MED ONE Lab/Rad Data: Laboratory Result Diagrams 11/05/19 09:00 11/05/19 09:00 Laboratory Results 11/05/19 11/05/19 11/05/19 Range/Units 09:00 09:00 09:00 WBC (4.0-10.5) K/mm3 RBC (4.1-5.4) M/mm3 Hgb (12.0-16.0) gm/dl Hct (35-47) % MCV (78-100) fl MCH (26-32) pg MCHC (32-36) g/dl RDW (11.5-14.0) % Plt Count (150-450) K/mm3 MPV (7.5-11.0) fl Gran % (36.0-66.0) % Eos # (Auto) (0-0.5) Absolute Lymphs (auto) (1.0-4.6) Absolute Monos (auto) (0.0-1.3) Lymphocytes % (24.0-44.0) % Monocytes % (0.0-12.0) % Eosinophils % (0.00-5.0) % Basophils % (0.0-0.4) % Absolute Granulocytes (1.4-6.9) Basophils # (0-0.4) Sodium 134 L (137-145) mmol/L Potassium 3.2 L (3.5-5.1) mmol/L Chloride 99 (98-107) mmol/L Carbon Dioxide 27 (22-30) mmol/L Anion Gap 11.1 (5-15) MEQ/L BUN 13 (7-17) mg/dL Creatinine 0.55 (0.52-1.04) mg/dL Estimated GFR > 60.0 ML/MIN Glucose 111 H (74-106) mg/dL Lactic Acid 0.8 (0.4-2.0) Calcium 8.4 (8.4-10.2) mg/dL Magnesium 2.1 (1.6-2.3) mg/dL Total Bilirubin 1.10 (0.2-1.3) mg/dL AST 26 (14-36) U/L ALT 14 (0-35) U/L Alkaline Phosphatase 63 (38-126) U/L Troponin I < 0.012 (0.000-0.034) ng/mL Serum Total Protein 6.4 (6.3-8.2) g/dL Albumin 3.5 (3.5-5.0) g/dL Lipase 42 (23-300) U/L 11/05/19 Range/Units 09:00 WBC 9.4 (4.0-10.5) K/mm3 RBC 3.79 L (4.1-5.4) M/mm3 Hgb 12.1 (12.0-16.0) gm/dl Hct 35.5 (35-47) % MCV 93.7 (78-100) fl MCH 31.9 (26-32) pg MCHC 34.1 (32-36) g/dl RDW 13.5 (11.5-14.0) % Plt Count 174 (150-450) K/mm3 MPV 10.2 (7.5-11.0) fl Gran % 75.7 H (36.0-66.0) % Eos # (Auto) 0 (0-0.5) Absolute Lymphs (auto) 1.13 (1.0-4.6) Absolute Monos (auto) 1.14 (0.0-1.3) Lymphocytes % 12.0 L (24.0-44.0) % Monocytes % 12.1 H (0.0-12.0) % Eosinophils % 0.0 (0.00-5.0) % Basophils % 0.2 (0.0-0.4) % Absolute Granulocytes 7.12 H (1.4-6.9) Basophils # 0.02 (0-0.4) Sodium (137-145) mmol/L Potassium (3.5-5.1) mmol/L Chloride (98-107) mmol/L Carbon Dioxide (22-30) mmol/L Anion Gap (5-15) MEQ/L BUN (7-17) mg/dL Creatinine (0.52-1.04) mg/dL Estimated GFR ML/MIN Glucose (74-106) mg/dL Lactic Acid (0.4-2.0) Calcium (8.4-10.2) mg/dL Magnesium (1.6-2.3) mg/dL Total Bilirubin (0.2-1.3) mg/dL AST (14-36) U/L ALT (0-35) U/L Alkaline Phosphatase (38-126) U/L Troponin I (0.000-0.034) ng/mL Serum Total Protein (6.3-8.2) g/dL Albumin (3.5-5.0) g/dL Lipase (23-300) U/L - Progress Progress: improved, re-examined Progress Note: 11/05/19 11:22 79 years old is evaluated for fall/syncope/fever chills. She had a fever 102 on presentation, given Tylenol. Laceration of the forehead is cleaned and glue/ Steri-Strips applied. CT head is negative for any acute intracranial findings. No acute findings on CT cervical spines. CT chest showed some pneumonic infiltrates. This is probably the reason for her fever and chills. Started on antibiotics. She has normal white count and lactate. Mildly low potassium. EKG normal sinus rhythm and normal troponin. COVID testing is ordered. Discussed with Dr. Soto and patient is being admitted. Discussed with : Other (Gabby) Will see patient in: hospital (full admit) Counseled pt/family regarding: lab results, diagnosis, rad results - Departure Departure Disposition: In-patient Admission Clinical Impression: Syncope and collapse, Suspected COVID-19 virus infection Pneumonia Qualifiers: Pneumonia type: due to unspecified organism Laterality: right Lung location: lower lobe of lung Qualified Code(s): J18.9 - Pneumonia, unspecified organism Laceration of periorbital area Qualifiers: Encounter type: initial encounter Qualified Code(s): S01.81XA - Laceration without foreign body of other part of head, initial encounter Condition: Stable Critical Care Time: Yes Critical Care Time(excluding separately billable procedures): Critical 30-74 mins Referrals: SMITH HAYES MD [Primary Care Provider] -
[2019-11-05] MEDS ORDERED: Sodium Chloride 0.9% 1000 ML 1,000 ML ONE (08:19)
[2019-11-05] MEDS ORDERED: TYLENOL 325 MG ONE (08:19)
[2019-11-05] MEDS ORDERED: Zofran 4 MG/2 ML VIAL ONE (08:19)
[2019-11-05 09:11] LABS: Absolute Neutrophil Ct (ANC) 7.12 (1.4-6.9); BASOPHIL % 0.2 % (0.0-0.4); Basophil (Absolute #) 0.02 (0-0.4); Eosinophil (Absolute #) 0 (0-0.5); Hematocrit 35.5 % (35-47); Hemoglobin 12.1 gm/dl (12.0-16.0); Lymphocyte (Absolute #) 1.13 (1.0-4.6); Mean Cell Volume 93.7 fl (78-100); Mean Corpuscular Hemoglobin 31.9 pg (26-32); Mean Corpuscular Hgb Concent. 34.1 g/dl (32-36); Mean Platelet Volume 10.2 fl (7.5-11.0); Monocyte (Absolute #) 1.14 (0.0-1.3); Monocytes % 12.1 % (0.0-12.0); Neutrophil % 75.7 % (36.0-66.0); Platelet Count 174 K/mm3 (150-450); Red Blood Count 3.79 M/mm3 (4.1-5.4); Red Cell Distribution Width 13.5 % (11.5-14.0); White Blood Count 9.4 K/mm3 (4.0-10.5)
[2019-11-05 09:40] LABS: ALBUMIN 3.5 g/dL (3.5-5.0); ALKALINE PHOSPHATASE 63 U/L (38-126); ANION GAP 11.1 MEQ/L (5-15); BLOOD UREA NITROGEN 13 mg/dL (7-17); CHLORIDE 99 mmol/L (98-107); Calcium 8.4 mg/dL (8.4-10.2); Carbon Dioxide 27 mmol/L (22-30); Creatinine 1 0.55 mg/dL (0.52-1.04); Glucose 111 mg/dL (74-106); LIPASE 42 U/L (23-300); MAGNESIUM 2.1 mg/dL (1.6-2.3); Potassium 3.2 mmol/L (3.5-5.1); SGOT/AST 26 U/L (14-36); SGPT/ALT 14 U/L (0-35); SODIUM 134 mmol/L (137-145); Total Protein 6.4 g/dL (6.3-8.2)
--- NOTE | 2019-11-05 10:12 | XRAY ---
Exam: CT of the head without IV contrast from 11/05/2019. CTDI: 53.92 mGy Comparison: CT of the head without IV contrast from 01/25/2019. Indication: 79-year-old female fell, abrasion to face. Technique: Non-IV contrast axial images were obtained through the brain. Reconstructed coronal and sagittal images were created and reviewed. Findings: The ventricles appear within normal limits of size for age. No focal mass effect or midline shift is seen. No acute intracranial bleed or abnormal extra-axial fluid collection is seen. Minor bilateral periventricular and subcortical white matter changes are seen consistent with chronic small vessel ischemic disease. This is essentially unchanged. No low attenuation infarct is seen. Moderate intracranial atherosclerotic vascular calcification is seen within both carotid siphons representing no change. Structures of the posterior fossa appear unremarkable. There is mild prominence of cortical sulci and basilar cisterns, again not inappropriate for the patient's age. The calvarium of the skull appears intact revealing no fracture. There is a suggestion of some mild left periorbital and supraorbital soft tissue swelling. Correlate clinically. I again note moderate to marked scattered soft tissue density throughout the paranasal sinuses with only partial sparing of the left frontal sinus and left maxillary sinus. This is consistent with marked chronic pansinusitis/sinus disease. The mastoid air cells of the the left mastoid are well aerated without effusion. However, there is moderate clouding of the majority of the right mastoid air cells. In retrospect, this appears to be chronic, as it is unchanged from 01/25/2019. The middle ear cavities appear unremarkable. The internal auditory canals appear unremarkable. Impression: 1. No acute intracranial bleed or other acute brain findings are seen. This is unchanged from 01/25/2019. 2. There appears to be some mild asymmetric left periorbital and supraorbital soft tissue swelling. Correlate clinically in this regard. No fracture of the calvarium of the skull is seen. 3. Chronic pansinusitis/sinus disease is again seen. I believe there is also some chronic right mastoid sinus disease which in retrospect is unchanged.
--- NOTE | 2019-11-05 10:22 | XRAY ---
Exam: CT of the cervical spine without IV contrast from 11/05/2019. CTDI: 36.03 mGy Comparison: 3 view cervical spine series from 05/30/2019. Indication: 79-year-old female with fall, complains of pain. Technique: Non-IV contrast axial images were obtained through the cervical spine. Reconstructed coronal and sagittal images were created and reviewed. Findings: I see no acute fracture, AP traumatic subluxation, or prevertebral soft tissue swelling. On the sagittal images, there is slight anterolisthesis of C4 over C5 which I believe is due to a combination of mild degenerative disc disease and posterior facet joint arthropathy (left greater than right) at this level. In retrospect, I believe this is unchanged. In addition, there is slight anterolisthesis of C7 over T1 which I again believe is due to posterior facet joint arthropathy at C7-T1, more prominent on the right than left. This also is unchanged in retrospect. There are changes consistent with mild degenerative disc disease at C4-C5 and moderate degenerative disc disease at C5-C6 and C6-C7. Some scattered degenerative changes of the uncovertebral joints are seen, most pronounced at C5-C6 on the right and at C6-C7 bilaterally, although C3-C4 and C4-C5 are involved to a lesser extent as well. No cervical ribs are seen. I see no evidence of significant central canal stenosis on the sagittal images. On the axial images, there appears to be mild to moderate neural foraminal narrowing involving C4-C5 through C6-C7. A prominent low-attenuation lesion is partially imaged within the lower pole of the left lobe of the thyroid gland. Further evaluation with a thyroid ultrasound is recommended. See axial images #65 through #69. Smaller low-attenuation lesions are seen elsewhere within the left lobe of the thyroid gland. No other significant soft tissue abnormality is seen within the soft tissues. Mild carotid artery vascular calcification is seen near the bifurcations. Impression: 1. No acute cervical spine fracture, AP traumatic subluxation, or prevertebral soft tissue swelling is seen. 2. Slight degenerative anterolisthesis of C4 over C5 and C7 over T1 is seen, as discussed above. I believe this is unchanged in retrospect. 3. Moderate cervical spine degenerative disc disease and degenerative joint disease are seen, as discussed above. 4. A prominent asymmetric low attenuation lesion is partially imaged at the inferior pole of the left lobe of the thyroid gland. There is also suggestion of some smaller low-attenuation lesions within the upper pole and middle third of the left lobe of the thyroid gland. Correlation with a thyroid ultrasound is recommended.
--- NOTE | 2019-11-05 11:01 | XRAY ---
Exam: CT of the chest without IV contrast from 11/05/2019. Total DLP: 272.38 mGy-cm Comparison: AP portable chest film from 08/01/2018. Indication: 79-year-old female fell and complains of left-sided pain/rib pain. Technique: Non-IV contrast axial images were obtained through the chest. Reconstructed coronal and sagittal images were created and reviewed. Findings: The heart size is normal without pericardial effusion. Three-vessel coronary artery vascular calcification is seen. There is a suggestion of a minimal hiatal hernia on axial image #45. No abnormal enlarged mediastinal or perihilar lymph nodes are seen. The distal trachea and major central branching bronchi appear open. I see no obvious rib fracture on the left, pleural effusion, or pneumothorax. At the right lung base within the anterior aspect of the right lower lobe, there is a mildly irregular consolidation measuring 3.8 cm in width, 2.4 cm in AP depth, and at least 3.2 cm in craniocaudal dimension. Some air bronchograms are noted within its superior aspect (for example, see coronal images #68 and #69). I believe this is most consistent with a pneumonic infiltrate. A component of round atelectasis or even a mass is not excluded. Correlate clinically. Follow-up is warranted. I again note an oval-shaped low-attenuation mass measuring about 2 cm x 1.5 cm in cross section within the lower pole of the left lobe of the thyroid gland on axial image #4. Correlation with a thyroid ultrasound is again recommended. There appears to be some mild pleural-parenchymal scarring at the upper posterior margin of the right lung apex on axial images #4 through #7. This is also seen on sagittal image #81. Other minor multifocal pleural thickening is seen posteriorly within both lung marcial, right greater than left. Significance of this is equivocal, but unknown. No pleural fluid is seen. No pneumothorax is seen. Surgical clips consistent with prior cholecystectomy are seen. There also couple surgical clips within the left upper quadrant. Vascular calcification is evident. The adrenal glands appear unremarkable. No other acute process is seen within the upper abdomen. Skeleton reveals no acute fracture or aggressive bone lesion. Moderate thoracic spondylosis is evident. Impression: 1. There is a mildly irregular soft tissue consolidation within the anterior aspect of the right lower lobe at the right lung base containing some air bronchograms within it. I am most concerned that this represents a pneumonic infiltrate. A component of round atelectasis or even mass is not completely excluded. Follow-up is warranted. 2. I see no other definite acute cardiopulmonary process. 3. The skeleton reveals no acute fracture, particularly within the left rib cage. 4. Right apical pleural-parenchymal scarring, mild posterior multifocal pleural thickening, minimal hiatal hernia, three-vessel coronary artery disease, atherosclerotic vascular calcification, and a low-attenuation, oval-shaped mass within the inferior pole of the left lobe of the thyroid gland are seen.
[2019-11-05] MEDS ORDERED: Zithromax 500 MG/ 250 ML NaCl Premix 500 MG/250 ML IVPB IV STA (11:17)
[2019-11-05] MEDS ORDERED: ROCEPHIN 2 Gm-D5w 50ML BAG** 2 G/50 ML IVPB IV STA (11:17)
[2019-11-05] MEDS ORDERED: ROCEPHIN 2 Gm-D5w 50ML BAG** 2 G/50 ML IVPB IV ONE (11:33)
[2019-11-05] MEDS ORDERED: Zithromax 500 MG/ 250 ML NaCl Premix 500 MG/250 ML IVPB IV ONE (11:33)
[2019-11-05] MEDS ORDERED: HUMALOG SQ PRN (12:09)
[2019-11-05] MEDS: TYLENOL 325 MG PO PRN ×2 (15:56→20:35)
[2019-11-05] MEDS: VENTOLIN COMMON CANISTER IH SCH ×2 (18:39→23:57)
[2019-11-05] MEDS: COREG 12.5 MG PO SCH (20:36)
[2019-11-05] MEDS: Zocor 10MG PO SCH (20:36)
[2019-11-05] MEDS: Pepcid 20 MG VIAL IV SCH (20:36)
[2019-11-05] MEDS ORDERED: NON-FORMULARY ITEM (Lovastatin [Lovastatin] 20 MG) PO SCH (22:00)
[2019-11-05] MEDS ORDERED: VENTOLIN COMMON CANISTER IH PRN (23:56)
[2019-11-06] MEDS: TYLENOL 325 MG PO PRN ×2 (03:22→22:02)
[2019-11-06 05:26] LABS: Appearance CLEAR (CLEAR); Leukocyte Esterase SMALL (NEGATIVE); Nitrite NEGATIVE (NEGATIVE); Specific Gravity 1.016 (1.005-1.025)
[2019-11-06 05:27] LABS: Bacteria RARE /HPF (NEGATIVE); Bilirubin NEGATIVE (NEGATIVE); Blood SMALL Ery/ul (0-5); Epithelial Cells RARE /HPF (FEW); Glucose NEGATIVE (NEGATIVE); Ketones SMALL (NEGATIVE); Mucus SLIGHT /HPF (NEGATIVE); Protein,Urine Dip NEGATIVE (Negative); Urobilinogen 2 mg/dL (0-1)
[2019-11-06 05:52] LABS: Absolute Neutrophil Ct (ANC) 6.28 (1.4-6.9); BASOPHIL % 0.2 % (0.0-0.4); Basophil (Absolute #) 0.02 (0-0.4); Eosinophil % 0.1 % (0.00-5.0); Eosinophil (Absolute #) 0.01 (0-0.5); Hemoglobin 11.4 gm/dl (12.0-16.0); Lymphocyte (Absolute #) 0.89 (1.0-4.6); Lymphocytes % 11.1 % (24.0-44.0); Mean Cell Volume 93.9 fl (78-100); Mean Corpuscular Hemoglobin 31.5 pg (26-32); Mean Corpuscular Hgb Concent. 33.5 g/dl (32-36); Mean Platelet Volume 10.2 fl (7.5-11.0); Monocyte (Absolute #) 0.84 (0.0-1.3); Monocytes % 10.4 % (0.0-12.0); Neutrophil % 78.2 % (36.0-66.0); Platelet Count 161 K/mm3 (150-450); Red Blood Count 3.62 M/mm3 (4.1-5.4); Red Cell Distribution Width 13.4 % (11.5-14.0)
[2019-11-06 06:11] LABS: ALBUMIN 3.2 g/dL (3.5-5.0); ALKALINE PHOSPHATASE 57 U/L (38-126); ANION GAP 11.5 MEQ/L (5-15); BLOOD UREA NITROGEN 12 mg/dL (7-17); CHLORIDE 100 mmol/L (98-107); Calcium 8.3 mg/dL (8.4-10.2); Carbon Dioxide 26 mmol/L (22-30); Creatinine 1 0.54 mg/dL (0.52-1.04); Glucose 101 mg/dL (74-106); SGOT/AST 24 U/L (14-36); SGPT/ALT 12 U/L (0-35); SODIUM 135 mmol/L (137-145); Total Protein 5.9 g/dL (6.3-8.2)
[2019-11-06] MEDS: Sodium Chloride 0.9% 10 ML FLUSH Syringe IV SCH ×3 (06:21→22:04)
[2019-11-06] MEDS: COREG 12.5 MG PO SCH ×2 (09:06→22:01)
[2019-11-06] MEDS: hydroDIURIL 25 MG PO SCH (09:06)
[2019-11-06] MEDS: ECOTRIN 81 MG PO SCH (09:06)
[2019-11-06] MEDS: Cozaar 50 MG PO SCH (09:06)
[2019-11-06] MEDS: Klor Con 10 MEQ PO SCH ×4 (09:10→22:01)
[2019-11-06] MEDS: Pepcid 20 MG VIAL IV SCH ×2 (09:10→22:01)
[2019-11-06] MEDS: ROCEPHIN 1 Gm-D5w 50 ml Bag** 1 G/50 ML IVPB IV SCH (09:10)
[2019-11-06] MEDS: Zithromax 500 MG/ 250 ML NaCl Premix 500 MG/250 ML IVPB IV SCH (09:11)
[2019-11-06] MEDS ORDERED: NON-FORMULARY ITEM (Losartan/Hydrochlorothiazide [Losartan-Hctz 50-12.5 Mg Tab] 1 TAB) PO SCH (10:00)
--- NOTE | 2019-11-06 11:51 | XRAY ---
Exam: AP portable chest film from 11/06/2019. Comparison: CT of the chest without IV contrast from 11/05/2019 and AP portable chest film from 08/01/2018. Indication: Pneumonia. Findings: The heart size is within normal limits with slight left ventricular prominence. A calcified, mildly tortuous descending thoracic aorta is seen. The remainder of the philip and mediastinal structures appears unremarkable. Mild airspace infiltrate is again seen at the right lung base suggestive of pneumonia. There is minimal blunting of the right lateral costophrenic angle which may be due to a tiny amount concomitant pleural fluid. The remainder of the lung marcial appears clear. No pneumothorax is seen. The left costophrenic angle appears unremarkable. EKG leads are seen in place. No acute osseous process is seen. Impression: 1. I again see a focal airspace infiltrate at the right lung base with only minimal obscuration of the right hemidiaphragmatic surface. This is consistent with pneumonia and appears about the same as yesterday's CT scan of the chest. 2. There is a suggestion of a minimal amount of concomitant right pleural fluid blunting the right costophrenic angle on the current radiograph. 3. No other acute cardiopulmonary disease is seen.
--- NOTE | 2019-11-06 14:36 | XRAY ---
Exam: Thyroid ultrasound from 11/06/2019. Comparison: CT of the chest without IV contrast from 11/05/2019. Indication: Thyroid mass seen at inferior pole of left lobe on CT of chest from 11/05/2019. The patient is a 79-year-old female. Findings: The right lobe of the thyroid gland measures 3.3 cm in length and 1.0 cm x 1.0 cm in cross section. The left lobe of the thyroid gland measures 4.4 cm in length and 1.3 cm x 1.3 cm in cross section. The isthmus measures 1.9 mm in AP dimension. No abnormality of the isthmus is seen. Within the upper pole of the right lobe, there is a small complex solid nodule measuring 0.2 cm x 0.2 cm x 0.3 cm at the lateral aspect. In addition, there is an oval-shaped complex hypoechoic nodule near the junction of the middle and inferior thirds of the right lobe measuring 0.3 cm x 0.3 cm x 0.2 cm. The remainder of the right lobe appears unremarkable Within the upper pole of the left lobe of the thyroid gland, I note an oval-shaped isoechoic to mildly hypoechoic complex nodule measuring 0.65 cm x 0.5 cm x 0.4 cm. In addition, there is a round mildly hypoechoic solid nodule seen at the lateral aspect of the upper pole of the left lobe measuring 0.55 cm x 0.5 cm x 0.55 cm. Within the inferior pole of the left lobe, there is an oval-shaped, isoechoic to slightly hypoechoic nodule containing a large central cystic area, the outer border of this nodule measuring 2.3 cm in length, 2.0 cm in width, and 1.0 cm in AP depth. There are no associated microcalcifications or posterior acoustical shadowing. The peripheral border is smooth, and the nodule is transversely oriented (i.e. parallel). This corresponds to the nodule seen on yesterday's CT scan. 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 Impression: 1. Multinodular goiter. 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 See above.
[2019-11-06] MEDS: Zocor 10MG PO SCH (22:02)
[2019-11-07 05:23] LABS: Hematocrit 34.6 % (35-47); Hemoglobin 11.8 gm/dl (12.0-16.0); Mean Cell Volume 93.5 fl (78-100); Mean Corpuscular Hemoglobin 31.9 pg (26-32); Mean Corpuscular Hgb Concent. 34.1 g/dl (32-36); Mean Platelet Volume 10.1 fl (7.5-11.0); Platelet Count 168 K/mm3 (150-450); Red Cell Distribution Width 13.2 % (11.5-14.0)
[2019-11-07 05:45] LABS: ANION GAP 9.1 MEQ/L (5-15); Potassium 3.4 mmol/L (3.5-5.1)
[2019-11-07] MEDS: Sodium Chloride 0.9% 10 ML FLUSH Syringe IV SCH (05:51)
--- NOTE | 2019-11-07 08:26 | PCM.DS ---
Discharge Summary Date of Admission: 11/05/19 11:57 Admitting Physician: SIERRA LOVING Primary Care Provider: SMITH HAYES GARY Allergies Allergies levofloxacin [From Levaquin] Allergy (Verified 05/30/19 18:53) Hospital Summary - Hospital Course Hospital Course: patient had a syncopal episode, arrived and was found to have pneumonia. she is tolerating po, ambulating and feels well. insists that she go home, has oxygen she wears 2L at night and refuses to wear any during the day. - Vitals & Intake/Output Vital Signs: Vital Signs Temperature 98.6 F 11/07/19 07:27 Pulse Rate 85 11/07/19 07:38 Respiratory Rate 18 11/07/19 07:38 Blood Pressure 153/70 11/07/19 07:27 O2 Sat by Pulse Oximetry 98 11/07/19 07:38 Intake & Output: Intake & Output 11/04/19 11/05/19 11/06/19 11/07/19 11:59 11:59 11:59 11:59 Intake Total 1380 1795 Output Total 600 2600 Balance 780 -805 Weight 70.307 kg 70.7 kg - Lab Result Diagrams: 11/07/19 04:15 11/07/19 04:15 Lab Results-Last 24 Hrs: Lab Results-Last 24 Hours 11/05/19 11/07/19 11/07/19 Range/Units 09:00 04:15 04:15 WBC 6.0 (4.0-10.5) K/mm3 RBC 3.70 L (4.1-5.4) M/mm3 Hgb 11.8 L (12.0-16.0) gm/dl Hct 34.6 L (35-47) % MCV 93.5 (78-100) fl MCH 31.9 (26-32) pg MCHC 34.1 (32-36) g/dl RDW 13.2 (11.5-14.0) % Plt Count 168 (150-450) K/mm3 MPV 10.1 (7.5-11.0) fl Sodium 135 L (137-145) mmol/L Potassium 3.4 L (3.5-5.1) mmol/L Chloride 100 (98-107) mmol/L Carbon Dioxide 29 (22-30) mmol/L Anion Gap 9.1 (5-15) MEQ/L COVID-19 (SULY) SEE SEPARATE REPORT Micro Results-Entire Visit: Microbiology 11/05/19 04:35 Urine Culture - Preliminary Clean Catch Midstream NO GROWTH TO DATE 11/05/19 09:00 Blood Culture - Preliminary Blood NO GROWTH TO DATE - Radiology Exams Ordered Rad Exams-Entire Visit: Radiology Procedures Category Date Time Status CERVICAL SPINE WO CONTRAST [CT] Stat Exams 11/05/19 08:10 Completed CHEST 1 VIEW (PORTABLE) Routine Exams 11/06/19 10:45 Completed CHEST WITHOUT CONTRAST [CT] Routine Exams 11/05/19 09:20 Completed ECHO W/2D AND DOPPLER [US] Routine Exams 11/06/19 13:51 Taken HEAD WITHOUT CONTRAST [CT] Stat Exams 11/05/19 08:09 Completed THYROID [US] Routine Exams 11/06/19 13:52 Completed - Procedures and Test Procedures and Tests throughout Hospitalization: Therapy Orders & Screens 11/05/19 12:09 Respiratory Therapy Consult ROUTINE Comment: Reason For Exam: 11/05/19 13:51 Oxygen Nasal Cannula 2 lpm Comment: Diagnosis: pneumonia, possible covid 11/05/19 13:59 Respiratory Therapy Assessment DAILY Comment: Diagnosis: pneumonia, possible covid Discharge Exam General Appearance: no apparent distress Eye Exam: other (ecchymoses left periorbital region) Neck Exam: normal inspection, non-tender, supple, full range of motion Respiratory Exam: normal breath sounds, lungs clear, No respiratory distress Cardiovascular Exam: regular rate/rhythm, normal heart sounds Gastrointestinal/Abdomen Exam: soft, No tenderness, No mass Wound Assessment: Skin/Wound Assessment Wound/Incision Assessment Start: 11/06/19 11: 41 Text: Status: Active Freq: Protocol: Document 11/06/19 11:41 BA (Rec: 11/06/19 11:44 BA [id number]) Wound/Incision Assessment Left Upper Arm Wound Assessment Shift Assessment Wound Type Laceration Wound Stage Non Pressure Wound Dressing Status Dry & Intact Comment Steri strips intact. Area cleaned with NS. Telfa to cover; coban applied. Left Eye Wound Assessment Shift Assessment Wound Type Laceration Wound Stage Non Pressure Wound Dressing Status Dry & Intact Drainage Amount None General Appearance Well Approximated Comment steri strips intact. Purple bruise surrounding L eye. Final Diagnosis/Problem List - Final Discharge Diagnosis/Problem (1) Syncope and collapse Current Visit: Yes Status: Acute Assessment & Plan: [place] ruled out, echo pending. no issues on telemetry since admission Code(s): R55 - SYNCOPE AND COLLAPSE (2) Pneumonia Current Visit: Yes Status: Acute Assessment & Plan: home on augmentin and zithromax Code(s): J18.9 - PNEUMONIA, UNSPECIFIED ORGANISM (3) Laceration of periorbital area Current Visit: Yes Status: Acute Code(s): S01.81XA - LACERATION W/O FOREIGN BODY OF OTH PART OF HEAD, INIT ENCNTR - Discharge Disposition: Home, Self-Care Condition: Stable Prescriptions: New Amoxicillin/Potassium Clav [Augmentin 500-125 Tablet] 500 mg PO TID #15 tablet Azithromycin 250 mg [Zithromax 250 MG TABLET] 250 mg PO DAILY #3 tablet Potassium Chloride 10 Meq Tab* [Klor Con 10 MEQ] 10 meq PO BID #60 tab Continue Aspirin [Aspirin EC] 81 mg PO DAILY #0 tablet. Carvedilol 12.5 mg [Coreg 12.5 mg] 12.5 mg PO BID #0 tablet Losartan/Hydrochlorothiazide [Losartan-Hctz 50-12.5 mg Tab] 1 tab PO DAILY Lovastatin 20 mg PO HS Outpatient Orders: BMP Time Frame: 1 Week, Location: [facility] Time Frame: 1 Week, Location: LABORATORY Follow up with: SMITH HAYES MD [Primary Care Provider] - 1 Week
[2019-11-07] MEDS: ROCEPHIN 1 Gm-D5w 50 ml Bag** 1 G/50 ML IVPB IV SCH ×2 (09:14→09:59)
[2019-11-07] MEDS: COREG 12.5 MG PO SCH (09:20)
[2019-11-07] MEDS: Klor Con 10 MEQ PO SCH (09:20)
[2019-11-07] MEDS: ECOTRIN 81 MG PO SCH (09:20)
[2019-11-07] MEDS: Cozaar 50 MG PO SCH (09:21)
[2019-11-07] MEDS: hydroDIURIL 25 MG PO SCH (09:21)
[2019-11-07] MEDS: Pepcid 20 MG VIAL IV SCH (09:54)
[2019-11-07] MEDS: Zithromax 500 MG/ 250 ML NaCl Premix 500 MG/250 ML IVPB IV SCH (09:54)
[2019-11-07 11:04] VITALS: O2SAT 97
[2019-11-07 11:34] VITALS: BP 117/68; PULSE 84
--- NOTE | 2019-11-11 15:57 | ECHO ---
Transthoracic echocardiographic examination and color Doppler was done on 11/06/2019. INDICATION: Mitral valve disease. IMPRESSION: 1) NO REGIONAL WALL MOTION ABNORMALITY. ESTIMATED GLOBAL LEFT VENTRICULAR EJECTION FRACTION BETWEEN 60 AND 70%. 2) MILD MITRAL REGURGITATION. 3) MILD TRICUSPID REGURGITATION. RIGHT VENTRICULAR SYSTOLIC PRESSURE OF 34 MM OF MERCURY. 4) MILD PULMONIC INSUFFICIENCY. 5) SCLEROTIC AORTIC VALVE WITH PEAK TRANSAORTIC GRADIENT OF 22 MMHG. 6) LEFT ATRIAL ENLARGEMENT. 7) LEFT VENTRICULAR HYPERTROPHY. The left ventricle is visualized and demonstrated adequate motion of all the segments. Estimated global left ventricular ejection fraction around 60 to 70%. There is left ventricular hypertrophy. The mitral valve is seen and this opens adequately. There is mild mitral regurgitation. The left atrium is enlarged. The aortic valve is sclerotic. The peak gradient across the aortic valve is 22 mm of Mercury. The right side chambers are normal. There is mild tricuspid regurgitation. The right ventricular systolic pressure of 34 mm of Mercury. There is also mild pulmonic insufficiency.
== END 2019-11-07 11:15 | disposition home or self-care (01) | DRG 312 ==
LOC: ED 07:46 → MED SURG 11:57
PROVIDERS: ADMIT Family Medicine; ATTEND Family Medicine
DX: R55 Syncope and collapse (principal); J18.9 Pneumonia, unspecified organism; R07.9 Chest pain, unspecified; I10 Essential (primary) hypertension; S01.81XA Laceration without foreign body of other part of head, initial encounter; E87.5 Hyperkalemia; E78.5 Hyperlipidemia, unspecified; Z11.59 Encounter for screening for other viral diseases; W19.XXXA Unspecified fall, initial encounter; Z79.899 Other long term (current) drug therapy; Z99.81 Dependence on supplemental oxygen
CPT/HCPCS: 12013; 36415; 70450; 71045; 71250; 72125; 76536; 80051; 80053; 81001; 83605; 83690; 83735; 83880; 84484; 85025; 85027; 87040; 87086; 93005; 93041; 93306; 94762; 96360; 96365; 96368; 96374; 99291; U0002; 36000; 99285; J0456; J0696; J2405; A9270-GY